=== PATIENT | female | born 1990 | race Caucasian/White ===

== ENCOUNTER → 2021-03-12 12:42 | Outpatient (CLI) | payer MEDICAID, SELFPAY ==
[2021-03-12 09:32] VITALS: BMI 32.8
[2021-03-12 14:00] LABS: Amphetamine Urine VISTA NEGATIVE (<1000 ng/mL); Barbiturate Urine VISTA NEGATIVE (< 200 ng/mL); Benzodiazepine Urine VISTA NEGATIVE (< 200 ng/mL); Cocaine Urine VISTA NEGATIVE (< 300 ng/mL); Ecstacy Urine VISTA NEGATIVE (< 500 ng/mL); Methadone Urine VISTA NEGATIVE (< 300 ng/mL); PCP Urine VISTA NEGATIVE (< 25 ng/mL); THC Urine VISTA POSITIVE (< 50 ng/mL); Vista UDS pH Range 7
[2021-03-14 03:07] LABS: Chlamydia By Nucleic Acid AMP Negative (Negative)
[2021-03-14 08:16] LABS: Gonococcus By Nucleic Acid AMP Negative (Negative)
[2021-03-17 12:40] LABS: HPV APTIMA, High Risk Negative (Negative)
== END ==
PROVIDERS: Referring Provider Obstetrics & Gynecology; Visit Provider Obstetrics & Gynecology
DX: Z34.90 Encounter for supervision of normal pregnancy, unspecified, unspecified trimester (principal); Z12.4 Encounter for screening for malignant neoplasm of cervix; Z11.3 Encounter for screening for infections with a predominantly sexual mode of transmission
CPT/HCPCS: 80307; 87086; 87088; 87491; 87591; 87624; 88175; G0145

== ENCOUNTER → 2021-04-01 16:01 | Outpatient (CLI) | payer MEDICAID, SELFPAY ==
[2021-03-12 09:32] VITALS: BMI 32.8
[2021-04-01 17:07] LABS: NATERA MAILED SPECIMEN
[2021-04-01 17:12] LABS: Absolute Lymphocyte Count 2.13 X10^3/uL (0.83-4.51); Absolute Neutrophil Count 7.3 X10^3/uL (2.0-7.7); Basophil# 0.03 X10^3/uL; Basophil% 0.3 % (0-1); Eosinophil# 0.18 X10^3/uL; Eosinophils% 1.7 % (0-5); Hematocrit 38.3 % (37-47); Hemoglobin 13.1 g/dL (12.0-15.0); Lymphocyte # 2.13 X10^3/ul (0.83-4.51); Lymphocyte % 20.3 % (19-41); Mean Corp Hgb Conc 34.2 g/dL (32-36); Mean Corpuscular Hgb 31.3 pg (27.0-32.0); Mean Corpuscular Volume 91.6 fL (81-99); Mean Platelet Vol. 11.8 fl (6.2-12.0); Monocyte# 0.81 X10^3/uL; Monocyte% 7.7 % (0-10); NRBC Flagged by Analyzer 0 % (0-5); Neutrophil % 69.5 % (47-70); Platelet Count 248 K/mm3 (150-450); RBC Distribution Width CV 12.3 % (11.6-14.6); Red Blood Count 4.18 M/mm3 (4.2-5.4); White Blood Count 10.5 K/mm3 (4.4-11.0)
[2021-04-01 17:43] LABS: Glucose Challenge Gest 1H 50g 150 mg/dL (70-140)
[2021-04-02 10:33] LABS: HIV - WCH Non-Reactive (Nonreactive); Hepatitis B Surface Antigen Non-Reactive (Nonreactive); Rubella IgG Reactive (Nonreactive); Syphilis Antibodies Non-reactive
[2021-04-02 10:38] LABS: Hepatitis C Antibody Preliminary Reactive (Nonreactive)
== END ==
PROVIDERS: Obstetrics & Gynecology; Referring Provider Obstetrics & Gynecology; Visit Provider Obstetrics & Gynecology
DX: Z34.81 Encounter for supervision of other normal pregnancy, first trimester (principal); Z31.430 Encounter of female for testing for genetic disease carrier status for procreative management
CPT/HCPCS: 36415; 82950; 85025; 86703; 86762; 86780; 86803; 86850; 86900; 86901; 87340

== ENCOUNTER → 2021-04-10 16:34 | Outpatient (CLI) | payer MEDICAID, SELFPAY ==
[2021-04-10 15:56] VITALS: BMI 32.8
[2021-04-10 18:12] LABS: ALB/GLOB Ratio 0.8 RATIO (0.9-2.4); AST(SGOT) 27 U/L (15-37); Alanine Aminotransfer ALT/SGPT 42 U/L (13-56); Albumin, Serum 3.4 g/dL (3.2-5.0); Alkaline Phosphatase 73 U/L (45-117); Anion Gap 9 (5-15); BUN 8 mg/dL (7-18); BUN/Creat Ratio 12.7 RATIO (10-20); Chloride 105 mmol/L (98-107); Creatinine, Serum 0.63 mg/dL (0.55-1.02); EST Glomerular Filtration Rate 117 mL/min (>60); Est Glom Filt Rate - Afr Amer 142 mL/min (>60); Glucose 75 mg/dL (74-106); Potassium 3.3 mmol/L (3.5-5.1); Protein, Total 7.4 g/dL (6.4-8.2); Sodium Level 137 mmol/L (136-145)
== END ==
PROVIDERS: Referring Provider Obstetrics & Gynecology; Visit Provider Obstetrics & Gynecology
DX: O09.299 Supervision of pregnancy with other poor reproductive or obstetric history, unspecified trimester (principal); Z3A.00 Weeks of gestation of pregnancy not specified
CPT/HCPCS: 36415; 80053

== ENCOUNTER → 2021-06-06 08:19 | Outpatient (CLI) | payer MEDICAID, SELFPAY ==
--- NOTE | 2021-06-06 08:20 | US_ITS ---
STUDY: SECOND AND THIRD TRIMESTER OBSTETRICAL ULTRASOUND REASON FOR EXAM: Female, 31 years old anatomy scan LMP: 01/11/2021 TECHNIQUE: Transabdominal TECHNICAL QUALITY: Adequate. PRIOR ULTRASOUND: None. FINDINGS: There is a single intrauterine fetus. The fetus is in a cephalic presentation. There is demonstrated cardiac activity with a heart rate of 141 bpm. There is a normal amniotic fluid volume. The largest amniotic fluid pocket measures 5.2 cm. The amniotic fluid index (ELIS) is cm. The placenta is posterior in location and is not low lying. There are Grade 0 placental changes. The cervix measures 5 cm in length. The adnexal regions are not visualized. BIOMETRY: BPD: 5.0 cm: 21 weeks, 1 days HC: 18.6 cm: 20 weeks, 6 days AC: 16.8 cm: 21 weeks, 5 days FL: 3.4 cm: 20 weeks, 3 days CI: 77.26% FL/BPD: 67.10% FL/HC: 18.11% FL/AC: 20.09% HC/AC: 1.11 age by current US: 20 weeks, 6 days. [place] by current US: . Estimated weight: 412 grams, +/- 62 grams, 67% %. Age by LMP: 20 weeks, 6 days. [place] by LMP: . ANATOMY: Gender: Cranium: Normal lateral ventricles. Normal choroid plexus. Normal cerebellum. Normal cisterna magna. Normal face, nose and lips. Chest: Normal 4-chamber heart. Abdomen/Pelvis: Normal diaphragm. Normal stomach. Normal abdominal wall. Normal cord insertion. Normal 3 vessel cord. Normal kidneys. Normal bladder. Spine: Normal cervical spine. Normal thoracic spine. Normal lumbar spine. Normal sacrum. Extremities: Normal bilateral upper extremities. Normal bilateral lower extremities. US/OB Anatomy Scan IMPRESSION: Living intrauterine of 20 weeks 6 days as described above. Electronically Signed: Hieu Hou MD at 9:19 EDT Tel , Service support ,
== END ==
PROVIDERS: Referring Provider Obstetrics & Gynecology; Visit Provider Obstetrics & Gynecology
DX: Z34.90 Encounter for supervision of normal pregnancy, unspecified, unspecified trimester (principal)
CPT/HCPCS: 76805; 76817

== ENCOUNTER → 2021-07-31 08:51 | Outpatient (CLI) | payer MEDICAID, SELFPAY ==
[2021-07-31 10:02] LABS: Absolute Lymphocyte Count 1.69 X10^3/uL (0.83-4.51); Absolute Neutrophil Count 9.7 X10^3/uL (2.0-7.7); Basophil# 0.04 X10^3/uL; Basophil% 0.3 % (0-1); Eosinophil# 0.16 X10^3/uL; Eosinophils% 1.3 % (0-5); Hematocrit 36.2 % (37-47); Hemoglobin 12.7 g/dL (12.0-15.0); Lymphocyte # 1.69 X10^3/ul (0.83-4.51); Lymphocyte % 13.5 % (19-41); Mean Corp Hgb Conc 35.1 g/dL (32-36); Mean Corpuscular Hgb 31.8 pg (27.0-32.0); Mean Corpuscular Volume 90.7 fL (81-99); Mean Platelet Vol. 12.1 fl (6.2-12.0); Monocyte# 0.89 X10^3/uL; Monocyte% 7.1 % (0-10); NRBC Flagged by Analyzer 0 % (0-5); Neutrophil # 9.69 X10^3/uL (2.7-7.7); Neutrophil % 77.2 % (47-70); Platelet Count 200 K/mm3 (150-450); RBC Distribution Width CV 12.6 % (11.6-14.6); RBC Distribution Width SD 41.5 fl (35.1-43.9); Red Blood Count 3.99 M/mm3 (4.2-5.4); White Blood Count 12.6 K/mm3 (4.4-11.0)
[2021-07-31 10:29] LABS: Glucose Challenge Gest 1H 50g 242 mg/dL (70-140)
[2021-08-01 21:07] LABS: HCV Quant. RNA PCR See Final Results IU/mL (.); HCV RNA-PCR, QUANT 13300000 IU/mL (.)
[2021-08-01 21:47] LABS: HCV log 10 7.124 (.)
== END ==
PROVIDERS: Obstetrics & Gynecology; Referring Provider Nurse Practitioner Women's Health; Visit Provider Nurse Practitioner Women's Health
DX: Z13.1 Encounter for screening for diabetes mellitus (principal); R76.8 Other specified abnormal immunological findings in serum
CPT/HCPCS: 36415; 82950; 85025; 87522

== ENCOUNTER 2021-08-14 17:00 | Outpatient (RCR) | payer MEDICAID, SELFPAY | END 2021-08-29 23:59 | LOC: DC 17:00 | PROVIDERS: Visit Provider Nurse Practitioner Women's Health | DX: O24.419 Gestational diabetes mellitus in pregnancy, unspecified control (principal); Z3A.00 Weeks of gestation of pregnancy not specified | CPT/HCPCS: 97802 ==

== ENCOUNTER 2021-09-04 16:22 | Outpatient (CLI) | payer MEDICAID, SELFPAY ==
--- NOTE | 2021-09-04 16:28 | US_ITS ---
STUDY: SECOND AND THIRD TRIMESTER OBSTETRICAL ULTRASOUND - LIMITED REASON FOR EXAM: Female, 31 years old. growth PRIOR ULTRASOUND: 10.8.21 TECHNIQUE: Transabdominal TECHNICAL QUALITY: Adequate. FINDINGS: There is a single intrauterine fetus. The fetus is in a cephalic presentation. There is demonstrated cardiac activity with a heart rate of 140 bpm. There is a normal amniotic fluid volume. The largest amniotic fluid pocket measures 5.3 cm. The amniotic fluid index (ELIS) is 14.2 cm. The placenta is posterior in location and is not low lying. There are Grade 1 placental changes. The cervix measures cm in length: 4.2. BIOMETRY: BPD: 84 mm: 33 weeks, 5 days HC: 317 mm: 35 weeks, 4 days AC: 301 mm: 34 weeks, 0 days FL: 64 mm: 32 weeks, 5 days CI: 78 FL/AC: 21 FL/BPD: 75 HC/AC: 1.05 age by current US: 34 weeks, 0 days. [place] by current US: 2.17.22. Estimated weight: 2279 grams, +/- 342 grams, 45 %. Age by LMP: 33 weeks, 5 days. [place] by LMP: 2.19.22. ANATOMY: Not obtained US/OB Limited With Biometrics IMPRESSION: There is a single live intrauterine with a heart rate of 140 bpm. age by current US: 34 weeks, 0 days. [place] by current US: 2.17.22. Estimated weight: 2279 grams, +/- 342 grams, 45 %. Electronically Signed: Freddy Chanel MD at 19:11 EST , Service support ,
== END 2021-09-04 23:59 | disposition short-term general hospital (02) ==
LOC: US 16:25
PROVIDERS: Referring Provider Obstetrics & Gynecology; Visit Provider Obstetrics & Gynecology
DX: O24.410 Gestational diabetes mellitus in pregnancy, diet controlled (principal); Z3A.34 34 weeks gestation of pregnancy
CPT/HCPCS: 76816

== ENCOUNTER 2021-09-18 08:43 | Outpatient (CLI) | payer MEDICAID, SELFPAY ==
[2021-09-18 08:54] LABS: Absolute Lymphocyte Count 0.69 X10^3/uL (0.83-4.51); Basophil# 0.02 X10^3/uL; Basophil% 0.3 % (0-1); Eosinophil# 0.02 X10^3/uL; Eosinophils% 0.3 % (0-5); Hematocrit 39.9 % (37-47); Hemoglobin 13.2 g/dL (12.0-15.0); Lymphocyte # 0.69 X10^3/ul (0.83-4.51); Lymphocyte % 10.3 % (19-41); Mean Corp Hgb Conc 33.1 g/dL (32-36); Mean Corpuscular Hgb 30.3 pg (27.0-32.0); Mean Corpuscular Volume 91.5 fL (81-99); Mean Platelet Vol. 12.2 fl (6.2-12.0); Monocyte# 0.94 X10^3/uL; NRBC Flagged by Analyzer 0 % (0-5); Neutrophil # 5.04 X10^3/uL (2.7-7.7); Neutrophil % 74.8 % (47-70); Platelet Count 156 K/mm3 (150-450); RBC Distribution Width CV 13.1 % (11.6-14.6); RBC Distribution Width SD 43.6 fl (35.1-43.9); Red Blood Count 4.36 M/mm3 (4.2-5.4); White Blood Count 6.7 K/mm3 (4.4-11.0)
[2021-09-18 09:09] LABS: ALB/GLOB Ratio 0.7 RATIO (0.9-2.4); AST(SGOT) 108 U/L (15-37); Alanine Aminotransfer ALT/SGPT 80 U/L (13-56); Albumin, Serum 2.6 g/dL (3.2-5.0); Alkaline Phosphatase 102 U/L (45-117); Anion Gap 9 (5-15); BUN 7 mg/dL (7-18); BUN/Creat Ratio 9.7 RATIO (10-20); Calcium,Total 8.6 mg/dL (8.5-10.1); Chloride 108 mmol/L (98-107); Creatinine, Serum 0.72 mg/dL (0.55-1.02); EST Glomerular Filtration Rate 100 mL/min (>60); Est Glom Filt Rate - Afr Amer 121 mL/min (>60); Globulin 3.9 g/dL (2.2-4.2); Glucose 139 mg/dL (74-106); Potassium 3.5 mmol/L (3.5-5.1); Protein, Total 6.5 g/dL (6.4-8.2); Sodium Level 137 mmol/L (136-145)
[2021-09-18 09:13] LABS: Protein, Urine (Random) 54.9 mg/dL (<11.9); Protein:Creat Ratio 446 mg/g CRE (0-200)
[2021-09-18 15:59] VITALS: BP 123/72; PULSE 115; TEMP 36.8; O2SAT 100
[2021-09-18 16:00] VITALS: BMI 30.6
[2021-09-18] MEDS: Betamethasone/Betamethasone 30 MG/5 ML Vial 12 MG IM (16:44)
--- NOTE | 2021-09-19 15:45 | OB.TRI.HP_ITS ---
HPI - General HPI Narrative YUMIKO PEÑA, is a 31 F who presents to labor and delivery for PIH work up and r/o labor. PFSH PFSH Medical History (Updated 10/15/21 @ 08:05 by Kristy Lewis NP, [employer]) Abnormal glucose affecting Gestational diabetes Hepatitis History of blood transfusion Home Medications vit,[id number] [Prenatabs FA] 1 tab PO DAILY 05/18/15 [History Last Taken 09/19/21 08:00 1 tab] clindamycin 1 %-benzoyl peroxide 5 % topical gel 1 applic TOPICAL DAILY 84 Days #50 g 07/04/21 [Rx Last Taken 09/18/21 22:00] blood sugar diagnostic #100 ea 07/31/21 [Rx Last Taken Unknown] blood-glucose meter #1 ea 07/31/21 [Rx Last Taken Unknown] aspirin 81 mg tablet,delayed release 81 mg PO DAILY 08/04/21 [History Last Taken 09/19/21 08:00 1 tab] lancets 33 gauge #100 ea 08/04/21 [History Last Taken Unknown] metformin 1,000 mg PO BID 10/10/21 [History Last Taken Unknown] Allergy/AdvReac Type Severity Reaction Status Date / Time latex Allergy Itching Verified 10/10/21 19:38 Family History Grandfather Heart disease Surgical History History of appendectomy Social History Smoking Status: Former smoker alcohol intake: never what type of physical activity do you participate in: none seatbelt use: always do you feel safe at home: Yes additional social history: Tavo Cole History 4 Elective abortions Hx Para 2 Spontaneous abortions 1 Hx # Term Pregnancies Ectopic pregnancies Hx # Pregnancies Multiple births # of living children 3 Past Pregnancies Del. Date Name GA/Weeks Outcome Route Bth Weight Gen Labor Lgth Anesthesia Del Locatn Provider FOB Unknown 2008 Paramjit 38 live - full term 7lbs 1oz Male epidural [place] Unknown 2013 SAB Unknown 2015 Mehrdad 36 live - 5lbs 11oz Male none [facility] 10/14/21 Errol 39 live - full term Male [facility] Jurgen Delivery Date: induction Janice Louie Delivery Date: No notes to display Delivery Date: induction pre e Janice Louie Delivery Date: 10/14/21 IOL 39 wk GDMA2 6/8 BPP hep c Bonita Moura Constitutional Constitutional: Reports systems reviewed and no addt'l complaints, except as documented Gastrointestinal Gastrointestinal: Denies bloating, constipation, cramping, diarrhea, nausea or vomiting Genitourinary Genitourinary: Reports other Details: Denies vaginal odor, vaginal bleeding, or vaginal discharge ; Denies difficulty urinating or flank pain Physical Exam HEENT normocephalic Resp normal respiratory effort and normal air movement no CVA tenderness Extremity normal to inspection General Extremity: edema bilateral (trace ) NST FHR Rate Baby A Baseline: 140 Variability:: Moderate Accelerations:: 15 x 15 Decelerations:: None NST Reactive:: Yes FHR Category:: Category I Assessment & Plan (1) Gestational diabetes: QUALIFIERS: Gestational diabetes mellitus control: diet-controlled Trimester: third trimester Qualified Code(s): O24.410 - Gestational diabetes mellitus in , diet controlled COMMENT: medication controlled, growth us q 4 weeks, 1/6 US nl, 2x weekly NSTs, deliver at 39 (2) Hepatitis C antibody test positive: COMMENT: antibody positive; 07/31 high viral load 13 million. s/p consult ID plan treatment PLAN: Patient presents for triage evaluation secondary to some elevated blood pressures and GDM. FHT: Moderate variability reactive no decelerations category I tracing [place]: intermittent Contractions Assessment and plan: Reactive NST, reassuring maternal and status patient discharged to home to follow-up. See problem list details for additional plan information. Charges/Coding Multi Select Codes Visit Charges Office Visit/Consults: 43094 OV L3 Est Urinary/Genital Urinary/Genital CPT Codes: 51002-25 non-stress test Interp
== END 2021-09-18 23:59 | disposition home or self-care (01) ==
LOC: PAVLAB 09:36 → WPOUT 15:56 → WP 15:56
PROVIDERS: Referring Provider Obstetrics & Gynecology; Visit Provider Obstetrics & Gynecology
DX: O13.3 Gestational [pregnancy-induced] hypertension without significant proteinuria, third trimester (principal); O24.410 Gestational diabetes mellitus in pregnancy, diet controlled; O98.413 Viral hepatitis complicating pregnancy, third trimester; B19.20 Unspecified viral hepatitis C without hepatic coma; Z3A.00 Weeks of gestation of pregnancy not specified; Z79.82 Long term (current) use of aspirin; Z79.899 Other long term (current) drug therapy; Z87.891 Personal history of nicotine dependence
CPT/HCPCS: 36415; 80053; 82570; 84156; 85025; 96372; 99218; G0378; J0702

== ENCOUNTER 2021-09-19 15:50 | Outpatient (CLI) | payer MEDICAID, SELFPAY ==
[2021-09-19 16:04] VITALS: BMI 30.4
[2021-09-19 16:41] VITALS: BP 121/72; PULSE 80; TEMP 36.7
[2021-09-19] MEDS: Betamethasone/Betamethasone 30 MG/5 ML Vial 12 MG IM (16:42)
--- NOTE | 2021-09-19 17:57 | OB.TRI.PN ---
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 repeat end of august. consult ID (4) Hx of preeclampsia, prior , currently : COMMENT: Second . Recommend ASA. Baseline PreE labs (5) : QUALIFIERS: Weeks of gestation: 35 weeks Qualified Code(s): Z3A.35 - 35 weeks gestation of COMMENT: NIPT- low risk male. Anatomy US normal (6) Supervision of high risk , antepartum: COMMENT: PRR [place] 10/18/20 boy PC:Mehrdad Yusuf Spouse:Mehrdad (7) Pre-eclampsia: PLAN: celestone x2 now deliver 37 weeks unless severe symptoms occur, then deliver oren when severe symptoms develop
== END 2021-09-19 23:59 | disposition home or self-care (01) ==
LOC: WPOUT 15:51 → WP 15:52
PROVIDERS: Referring Provider Obstetrics & Gynecology; Visit Provider Obstetrics & Gynecology
DX: O14.93 Unspecified pre-eclampsia, third trimester (principal); O24.410 Gestational diabetes mellitus in pregnancy, diet controlled; Z14.8 Genetic carrier of other disease; Z3A.35 35 weeks gestation of pregnancy; O09.93 Supervision of high risk pregnancy, unspecified, third trimester
CPT/HCPCS: 96372; 99218; G0378; J0702

== ENCOUNTER 2021-09-25 09:12 | Outpatient (CLI) | payer MEDICAID, SELFPAY ==
[2021-09-25 09:44] LABS: Absolute Lymphocyte Count 1.37 X10^3/uL (0.83-4.51); Absolute Neutrophil Count 3.7 X10^3/uL (2.0-7.7); Basophil# 0.01 X10^3/uL; Basophil% 0.2 % (0-1); Eosinophil# 0.07 X10^3/uL; Eosinophils% 1.2 % (0-5); Hematocrit 39.5 % (37-47); Hemoglobin 13.6 g/dL (12.0-15.0); Lymphocyte # 1.37 X10^3/ul (0.83-4.51); Lymphocyte % 23.8 % (19-41); Mean Corp Hgb Conc 34.4 g/dL (32-36); Mean Corpuscular Hgb 31.1 pg (27.0-32.0); Mean Corpuscular Volume 90.4 fL (81-99); Mean Platelet Vol. 11.8 fl (6.2-12.0); Monocyte# 0.64 X10^3/uL; Monocyte% 11.1 % (0-10); NRBC Flagged by Analyzer 0 % (0-5); Neutrophil # 3.65 X10^3/uL (2.7-7.7); Neutrophil % 63.5 % (47-70); Platelet Count 165 K/mm3 (150-450); RBC Distribution Width CV 13.1 % (11.6-14.6); Red Blood Count 4.37 M/mm3 (4.2-5.4); White Blood Count 5.8 K/mm3 (4.4-11.0)
[2021-09-25 10:19] LABS: ALB/GLOB Ratio 0.6 RATIO (0.9-2.4); AST(SGOT) 19 U/L (15-37); Alanine Aminotransfer ALT/SGPT 26 U/L (13-56); Albumin, Serum 2.5 g/dL (3.2-5.0); Alkaline Phosphatase 106 U/L (45-117); Anion Gap 7 (5-15); BUN 8 mg/dL (7-18); BUN/Creat Ratio 11.9 RATIO (10-20); Calcium,Total 8.8 mg/dL (8.5-10.1); Chloride 109 mmol/L (98-107); Creatinine, Serum 0.67 mg/dL (0.55-1.02); EST Glomerular Filtration Rate 108 mL/min (>60); Est Glom Filt Rate - Afr Amer 131 mL/min (>60); Globulin 3.9 g/dL (2.2-4.2); Glucose 86 mg/dL (74-106); Potassium 3.9 mmol/L (3.5-5.1); Protein, Total 6.4 g/dL (6.4-8.2); Sodium Level 139 mmol/L (136-145)
[2021-09-25 10:58] LABS: Protein, Urine (Random) 10.1 mg/dL (<11.9); Protein:Creat Ratio 357 mg/g CRE (0-200)
== END 2021-09-25 23:59 | disposition short-term general hospital (02) ==
LOC: PAVLAB 09:13
PROVIDERS: Referring Provider Obstetrics & Gynecology; Visit Provider Obstetrics & Gynecology
DX: O14.93 Unspecified pre-eclampsia, third trimester (principal); Z3A.36 36 weeks gestation of pregnancy
CPT/HCPCS: 36415; 80053; 82570; 84156; 85025; 87081

== ENCOUNTER 2021-09-29 14:23 | Outpatient (CLI) | payer MEDICAID, SELFPAY ==
--- NOTE | 2021-09-29 14:27 | US_ITS ---
STUDY: SECOND AND THIRD TRIMESTER OBSTETRICAL ULTRASOUND REASON FOR EXAM: Female, 31 years old growth LMP: 01/11/2021 TECHNIQUE: Transabdominal TECHNICAL QUALITY: Adequate. PRIOR ULTRASOUND: Comparison is made with prior study dated 09/04/2021. FINDINGS: There is a single intrauterine fetus. The fetus is in a cephalic presentation. There is demonstrated cardiac activity with a heart rate of 158 bpm. There is a normal amniotic fluid volume. The largest amniotic fluid pocket measures 3.6 cm. The amniotic fluid index (ELIS) is 17.5 cm. The placenta is fundal and posterior in location. There are Grade 2 placental changes. The adnexal regions are not visualized. BIOMETRY: BPD: 9 cm: 36 weeks, 1 days HC: 32.1 cm: 36 weeks, 1 days AC: 33.5 cm: 37 weeks, 2 days FL: 7 cm: 36 weeks, 0 days CI: 80% FL/BPD: 78% FL/HC: FL/AC: 21% HC/AC: 0.96 age by current US: 36 weeks, 3 days. [place] by current US: 10/24/2021. Estimated weight: 3089 grams, +/- 463 grams, 50 %. age by prior US: 37 weeks, 4 days. [place] by prior US: 10/16/2019. Age by LMP: 37 weeks, 2 days. [place] by LMP: 10/18/2021. US/OB Limited With Biometrics IMPRESSION: Single live uterine gestation with mean gestational age of 37 weeks and 4 days. The measurements obtained today fall within normal expected range. Electronically Signed: Guero Vasquez MD at 15:38 EST ,
== END 2021-09-29 23:59 | disposition short-term general hospital (02) ==
PROVIDERS: Referring Provider Obstetrics & Gynecology; Visit Provider Obstetrics & Gynecology
DX: O24.410 Gestational diabetes mellitus in pregnancy, diet controlled (principal)
CPT/HCPCS: 76816

== ENCOUNTER 2021-10-01 13:42 | Outpatient (CLI) | payer MEDICAID, SELFPAY ==
[2021-10-01 14:29] LABS: Protein, Urine (Random) < 6.0 mg/dL (<11.9)
[2021-10-01 14:30] LABS: Absolute Lymphocyte Count 1.16 X10^3/uL (0.83-4.51); Absolute Neutrophil Count 6.4 X10^3/uL (2.0-7.7); Basophil# 0.01 X10^3/uL; Basophil% 0.1 % (0-1); Eosinophil# 0.04 X10^3/uL; Eosinophils% 0.5 % (0-5); Hematocrit 41.2 % (37-47); Hemoglobin 13.8 g/dL (12.0-15.0); Lymphocyte # 1.16 X10^3/ul (0.83-4.51); Lymphocyte % 13.8 % (19-41); Mean Corp Hgb Conc 33.5 g/dL (32-36); Mean Corpuscular Hgb 30.2 pg (27.0-32.0); Mean Corpuscular Volume 90.2 fL (81-99); Mean Platelet Vol. 12.8 fl (6.2-12.0); Monocyte% 9.5 % (0-10); NRBC Flagged by Analyzer 0 % (0-5); Neutrophil # 6.35 X10^3/uL (2.7-7.7); Neutrophil % 75.9 % (47-70); Platelet Count 172 K/mm3 (150-450); RBC Distribution Width CV 12.9 % (11.6-14.6); RBC Distribution Width SD 42.2 fl (35.1-43.9); Red Blood Count 4.57 M/mm3 (4.2-5.4); White Blood Count 8.4 K/mm3 (4.4-11.0)
[2021-10-01 14:31] LABS: ALB/GLOB Ratio 0.7 RATIO (0.9-2.4); AST(SGOT) 22 U/L (15-37); Alanine Aminotransfer ALT/SGPT 39 U/L (13-56); Albumin, Serum 2.7 g/dL (3.2-5.0); Alkaline Phosphatase 106 U/L (45-117); Anion Gap 9 (5-15); BUN 10 mg/dL (7-18); BUN/Creat Ratio 14.6 RATIO (10-20); Calcium,Total 9.6 mg/dL (8.5-10.1); Chloride 107 mmol/L (98-107); Creatinine, Serum 0.69 mg/dL (0.55-1.02); EST Glomerular Filtration Rate 106 mL/min (>60); Est Glom Filt Rate - Afr Amer 128 mL/min (>60); Globulin 4.1 g/dL (2.2-4.2); Glucose 107 mg/dL (74-106); Potassium 3.8 mmol/L (3.5-5.1); Protein, Total 6.8 g/dL (6.4-8.2); Sodium Level 139 mmol/L (136-145)
== END 2021-10-01 23:59 | disposition short-term general hospital (02) ==
PROVIDERS: Referring Provider Nurse Practitioner Women's Health; Visit Provider Nurse Practitioner Women's Health
DX: Z34.90 Encounter for supervision of normal pregnancy, unspecified, unspecified trimester (principal)
CPT/HCPCS: 87635; 36415; 80053; 82570; 84156; 85025; U0003; U0005

== ENCOUNTER 2021-10-05 15:50 | Outpatient (CLI) | payer MEDICAID, SELFPAY ==
[2021-10-05 16:02] VITALS: BP 137/78; PULSE 95
--- NOTE | 2021-10-06 15:42 | OB.TRI.NOTE ---
HPI - General HPI Narrative YUMIKO PEÑA, is a 31 F who presents to OB triage for scheduled NST 10/06/2021 [facility] Medical History (Updated 10/15/21 @ 08:05 by Kristy Lewis NP, [employer]) Abnormal glucose affecting Gestational diabetes Hepatitis History of blood transfusion Home Medications vit,[id number] [Prenatabs FA] 1 tab PO DAILY 05/18/15 [History Last Taken 09/19/21 08:00 1 tab] clindamycin 1 %-benzoyl peroxide 5 % topical gel 1 applic TOPICAL DAILY 84 Days #50 g 07/04/21 [Rx Last Taken 09/18/21 22:00] blood sugar diagnostic #100 ea 07/31/21 [Rx Last Taken Unknown] blood-glucose meter #1 ea 07/31/21 [Rx Last Taken Unknown] aspirin 81 mg tablet,delayed release 81 mg PO DAILY 08/04/21 [History Last Taken 09/19/21 08:00 1 tab] lancets 33 gauge #100 ea 08/04/21 [History Last Taken Unknown] metformin 1,000 mg PO BID 10/10/21 [History Last Taken Unknown] Allergy/AdvReac Type Severity Reaction Status Date / Time latex Allergy Itching Verified 10/10/21 19:38 Family History Grandfather Heart disease Surgical History History of appendectomy Social History Smoking Status: Former smoker alcohol intake: never what type of physical activity do you participate in: none seatbelt use: always do you feel safe at home: Yes additional social history: Tavo Cole History 4 Elective abortions Hx Para 2 Spontaneous abortions 1 Hx # Term Pregnancies Ectopic pregnancies Hx # Pregnancies Multiple births # of living children 3 Past Pregnancies Del. Date Name GA/Weeks Outcome Route Bth Weight Gen Labor Lgth Anesthesia Del Locatn Provider FOB Unknown 2008 Paramjit 38 live - full term 7lbs 1oz Male epidural [place] Unknown 2013 SAB Unknown 2015 Mehrdad 36 live - 5lbs 11oz Male none [facility] 10/14/21 Errol 39 live - full term Male [facility] Jurgen Delivery Date: induction Janice Louie Delivery Date: No notes to display Delivery Date: induction pre e Janice Louie Delivery Date: 10/14/21 IOL 39 wk GDMA2 6/8 BPP hep c MartellBonita ROS Constitutional Constitutional: Reports systems reviewed and no addt'l complaints, except as documented Gastrointestinal Gastrointestinal: Denies bloating, constipation, cramping, diarrhea, nausea or vomiting Genitourinary Genitourinary: Reports other Details: Denies vaginal odor, vaginal bleeding, or vaginal discharge ; Denies difficulty urinating or flank pain Physical Exam HEENT normocephalic Resp normal respiratory effort and normal air movement no CVA tenderness Extremity normal to inspection General Extremity: edema bilateral (trace ) NST FHR Rate Baby A Baseline: 140 Variability:: Moderate Accelerations:: 15 x 15 Decelerations:: None NST Reactive:: Yes FHR Category:: Category I Assessment & Plan (1) Gestational diabetes: QUALIFIERS: Gestational diabetes mellitus control: diet-controlled Trimester: third trimester Qualified Code(s): O24.410 - Gestational diabetes mellitus in , diet controlled COMMENT: medication controlled, growth us q 4 weeks, 1/6 US nl, 2x weekly NSTs, deliver at 39 (2) Hepatitis C antibody test positive: COMMENT: antibody positive; 07/31 high viral load 13 million. s/p consult ID plan treatment PLAN: Patient presents for triage evaluation secondary to gestational diabetes and some elevated blood pressures on and off throughout the pregnancies. She was scheduled for an NST FHT: Moderate variability reactive no decelerations category I tracing [place]: irregular Contractions Assessment and plan: Reactive NST, reassuring maternal and status patient discharged to home to follow-up. See problem list details for additional plan information. Charges/Coding Multi Select Codes Visit Charges Office Visit/Consults: 45972 OV L3 Est Urinary/Genital Urinary/Genital CPT Codes: 91483-27 non-stress test Interp
== END 2021-10-05 23:59 | disposition home or self-care (01) ==
LOC: WPOUT 15:57 → WP 15:58
PROVIDERS: Referring Provider Obstetrics & Gynecology; Visit Provider Obstetrics & Gynecology
DX: O24.410 Gestational diabetes mellitus in pregnancy, diet controlled (principal); Z01.84 Encounter for antibody response examination; Z87.891 Personal history of nicotine dependence; O26.20 Pregnancy care for patient with recurrent pregnancy loss, unspecified trimester; Z3A.00 Weeks of gestation of pregnancy not specified
CPT/HCPCS: 59050; 99218; G0378

== ENCOUNTER 2021-10-07 16:54 | Outpatient (CLI) | payer MEDICAID, SELFPAY ==
--- NOTE | 2021-10-07 16:57 | US_ITS ---
and: OBSTETRICAL ULTRASOUND - BIOPHYSICAL PROFILE REASON FOR EXAM: Female, 31 years old decrease movement -- wet read to [phone] LMP: PRIOR ULTRASOUND: None. TECHNIQUE: Transabdominal TECHNICAL QUALITY: Adequate. FINDINGS: There is a single intrauterine fetus. The fetus is in a cephalic presentation. There is demonstrated cardiac activity with a heart rate of 139 bpm. There is a normal amniotic fluid volume. The largest amniotic fluid pocket measures 4.48 cm. The amniotic fluid index (ELIS) is 15.1 cm. The placenta is posterior and fundal There are Grade 2 placental changes. Age by LMP: 38 weeks, 3 days. [place] by LMP: 10/18/2021. BIOPHYSICAL PROFILE: Breathing Movements (FBM): 2 Gross Body Movements (GBM): 2 Tone (FT): 2 Amniotic Fluid Volume (AFV): 2 TOTAL SCORE: 2 / 8 US/Biophysical Prof W/O Non Stres IMPRESSION: Normal biophysical profile of 8/8. Incidental finding of apparent male fetus with small bilateral hydroceles Recommend clinical correlation and follow-up studies if clinically warranted Electronically Signed: Abhishek Desir MD at 21:37 EST ,
== END 2021-10-07 23:59 | disposition home or self-care (01) ==
LOC: US 16:55
PROVIDERS: Referring Provider Obstetrics & Gynecology; Visit Provider Obstetrics & Gynecology
DX: O36.8190 Decreased fetal movements, unspecified trimester, not applicable or unspecified (principal); Z3A.38 38 weeks gestation of pregnancy
CPT/HCPCS: 76819

== ENCOUNTER 2021-10-09 09:08 | Outpatient (CLI) | payer MEDICAID, SELFPAY ==
[2021-10-09 09:26] LABS: Absolute Lymphocyte Count 1.14 X10^3/uL (0.83-4.51); Absolute Neutrophil Count 5.8 X10^3/uL (2.0-7.7); Basophil# 0.02 X10^3/uL; Basophil% 0.3 % (0-1); Eosinophil# 0.05 X10^3/uL; Eosinophils% 0.6 % (0-5); Hematocrit 41.1 % (37-47); Lymphocyte # 1.14 X10^3/ul (0.83-4.51); Lymphocyte % 14.6 % (19-41); Mean Corp Hgb Conc 34.1 g/dL (32-36); Mean Corpuscular Hgb 31.4 pg (27.0-32.0); Mean Corpuscular Volume 92.2 fL (81-99); Mean Platelet Vol. 12.3 fl (6.2-12.0); Monocyte# 0.77 X10^3/uL; Monocyte% 9.8 % (0-10); NRBC Flagged by Analyzer 0 % (0-5); Neutrophil # 5.83 X10^3/uL (2.7-7.7); Neutrophil % 74.4 % (47-70); Platelet Count 188 K/mm3 (150-450); RBC Distribution Width CV 12.9 % (11.6-14.6); RBC Distribution Width SD 43.3 fl (35.1-43.9); Red Blood Count 4.46 M/mm3 (4.2-5.4); White Blood Count 7.8 K/mm3 (4.4-11.0)
[2021-10-09 09:34] LABS: Protein, Urine (Random) 8.6 mg/dL (<11.9); Protein:Creat Ratio 290 mg/g CRE (0-200)
[2021-10-09 09:54] LABS: ALB/GLOB Ratio 0.6 RATIO (0.9-2.4); AST(SGOT) 19 U/L (15-37); Alanine Aminotransfer ALT/SGPT 27 U/L (13-56); Albumin, Serum 2.5 g/dL (3.2-5.0); Alkaline Phosphatase 110 U/L (45-117); Anion Gap 9 (5-15); BUN 8 mg/dL (7-18); BUN/Creat Ratio 10.8 RATIO (10-20); Calcium,Total 9.1 mg/dL (8.5-10.1); Chloride 107 mmol/L (98-107); Creatinine, Serum 0.74 mg/dL (0.55-1.02); EST Glomerular Filtration Rate 97 mL/min (>60); Est Glom Filt Rate - Afr Amer 117 mL/min (>60); Glucose 95 mg/dL (74-106); Potassium 3.6 mmol/L (3.5-5.1); Protein, Total 6.5 g/dL (6.4-8.2); Sodium Level 136 mmol/L (136-145)
== END 2021-10-09 23:59 | disposition home or self-care (01) ==
LOC: PAVLAB 09:09
PROVIDERS: Referring Provider Obstetrics & Gynecology; Visit Provider Obstetrics & Gynecology
DX: O12.10 Gestational proteinuria, unspecified trimester (principal); Z3A.00 Weeks of gestation of pregnancy not specified
CPT/HCPCS: 80053; 85025; 36415; 82570; 84156

== ENCOUNTER 2021-10-10 18:20 | Inpatient (IN) | payer MEDICAID, SELFPAY ==
[2021-10-10] VITALS (11 sets, daily range): BP systolic 123–140; BP diastolic 70–89; PULSE 78–109; TEMP 36.4–37; O2SAT 91–99; BMI 29.7; BMI 29.9
--- NOTE | 2021-10-10 16:16 | US_ITS ---
STUDY: OBSTETRICAL ULTRASOUND - BIOPHYSICAL PROFILE REASON FOR EXAM: Female, 31 years old. Decreased movement. LMP: 01/11/2021 PRIOR ULTRASOUND: 10/07/2021, 09/29/2021, 09/04/2021, 06/06/2021. TECHNIQUE: Transabdominal TECHNICAL QUALITY: Adequate. FINDINGS: There is a single intrauterine fetus. The fetus is in a cephalic presentation. There is demonstrated cardiac activity with a heart rate of 125 bpm. There is a normal amniotic fluid volume. The largest amniotic fluid pocket measures 10.1 cm. The amniotic fluid index (ELIS) is 19.5 to cm. The placenta is fundal and posterior not low-lying There are Grade 2 placental changes. Age by LMP: 38 weeks, 6 days. [place] by LMP: 10/18/2021. age by prior US: 38 weeks, 6 days. [place] by prior US: 10/18/2021.. BIOPHYSICAL PROFILE: Breathing Movements (FBM): 0 Gross Body Movements (GBM): 2 Tone (FT): 2 Amniotic Fluid Volume (AFV): 2 TOTAL SCORE: 6 / 8 US/Biophysical Prof W/O Non Stres IMPRESSION: biophysical profile of 8. Electronically Signed: Eugenio Choudhary DO at 17:35 EST ,
[2021-10-10] MEDS: Lactated Ringers 1,000 ML 50 ML IV (19:45)
[2021-10-10 20:06] LABS: Bedside Glucose 106 mg/dL (70-110)
[2021-10-10 20:18] LABS: Absolute Lymphocyte Count 1.67 X10^3/uL (0.83-4.51); Absolute Neutrophil Count 8.7 X10^3/uL (2.0-7.7); Basophil# 0.02 X10^3/uL; Basophil% 0.2 % (0-1); Eosinophil# 0.02 X10^3/uL; Eosinophils% 0.2 % (0-5); Hematocrit 41.8 % (37-47); Lymphocyte # 1.67 X10^3/ul (0.83-4.51); Lymphocyte % 14.9 % (19-41); Mean Corp Hgb Conc 33.5 g/dL (32-36); Mean Corpuscular Hgb 31.1 pg (27.0-32.0); Mean Corpuscular Volume 92.9 fL (81-99); Mean Platelet Vol. 12.5 fl (6.2-12.0); Monocyte# 0.73 X10^3/uL; Monocyte% 6.5 % (0-10); NRBC Flagged by Analyzer 0 % (0-5); Neutrophil # 8.69 X10^3/uL (2.7-7.7); Neutrophil % 77.8 % (47-70); Platelet Count 207 K/mm3 (150-450); RBC Distribution Width CV 12.8 % (11.6-14.6); RBC Distribution Width SD 43.8 fl (35.1-43.9); White Blood Count 11.2 K/mm3 (4.4-11.0)
[2021-10-10] MEDS: Oxytocin 30 units/NS 500 ml 30 UNITS/500 ML IV.SOLN IV (20:22)
--- NOTE | 2021-10-10 20:25 | HP.PCM.OB_ITS ---
HPI - General General Date of Admission: 10/10/21 HPI Narrative YUMIKO PEÑA, is a 31 F who presents for decreased movement and 6 out of 8 BPP. Patient has had a complicated by medication controlled diabetes and hepatitis C. She has also had proteinuria intermittently at the end of this and had Covid 2 weeks ago. Contractions are irregular and she is now 3 cm dilated. Maternal Data Information [place] Calculator Estimated Delivery Date Method Current WG Current Estimate 10/18/21 LMP (Certain) 38w 6d Other Estimates 10/16/21 Ultrasound #1 39w 1d PFSH [facility] Medical History (Updated 10/10/21 @ 20:[address] Rosenda Seaman MD) Abnormal glucose affecting Gestational diabetes Hepatitis History of blood transfusion Home Medications vit,[id number] [Prenatabs FA] 1 tab PO DAILY 05/18/15 [History Last Taken 09/19/21 08:00 1 tab] clindamycin 1 %-benzoyl peroxide 5 % topical gel 1 applic TOPICAL DAILY 84 Days #50 g 07/04/21 [Rx Last Taken 09/18/21 22:00] blood sugar diagnostic #100 ea 07/31/21 [Rx Last Taken Unknown] blood-glucose meter #1 ea 07/31/21 [Rx Last Taken Unknown] aspirin 81 mg tablet,delayed release 81 mg PO DAILY 08/04/21 [History Last Taken 09/19/21 08:00 1 tab] lancets 33 gauge #100 ea 08/04/21 [History Last Taken Unknown] metformin 1,000 mg PO BID 10/10/21 [History Last Taken Unknown] Allergy/AdvReac Type Severity Reaction Status Date / Time latex Allergy Itching Verified 10/10/21 19:38 Family History Grandfather Heart disease Surgical History History of appendectomy Social History Smoking Status: Former smoker alcohol intake: never what type of physical activity do you participate in: none seatbelt use: always do you feel safe at home: Yes additional social history: Tavo Cole History 4 Elective abortions Hx Para 2 Spontaneous abortions 1 Hx # Term Pregnancies Ectopic pregnancies Hx # Pregnancies Multiple births # of living children 2 Past Pregnancies Del. Date Name GA/Weeks Outcome Route Bth Weight Infant Gen Labor Lgth Anesthesia Del Locatn Provider FOB Unknown 2008 Paramjit 38 live - full term 7lbs 1oz Male epidural Lonnie Unknown 2013 SAB Unknown 2015 Mehrdad 36 live - 5lbs 11oz Male none [facility] Delivery Date: induction Louie,Janice Delivery Date: No notes to display Delivery Date: induction pre e Louie,Janice Visit Details Expected Delivery Route/Plan Labor Preferences- labor support person: [] labor intervention preferences: [] pain management options preferred: [] cut cord/dad catch: [] : [] PP control planned: iud planned discussed possible routes of delivery and associated risks: [] special requests: [] Plans covid vaccine: non immune, counseled regarding risk of covid in vs vaccination and declined vaccination flu vaccine: decline tdap vaccine: [] rhogam: [] LARC form signed: [] Problem list reviewed and updated with the most current plan of care details and appropriate orders placed. Relevant counseling for the gestational age provided. Continue routine care and follow up unless otherwise noted in visit notes/problem list details OB Flowsheet Initial Weight: 171 lb Date -?-?-?-?-?-?-?-?-?-?-?-?- EGA Weight BP Urine Prot -?-?-?-?-?-?-?-?-?-?-?-?- Glucose FHR FuHt Pres Dilation -?-?-?-?-?-?-?-?-?-?-?-?- Effaced St Visit Note 03/12/21 -?-?-?-?-?-?-?-?-?-?-?-?- 8w 4d 171 lb (+0 oz) 130/92 -?-?-?-?-?-?-?-?-?-?-?-?- 170 -?-?-?-?-?-?-?-?-?-?-?-?- GP - CRL 22mm co nsistent with LMP and prior US 04/10/21 -?-?-?-?-?-?-?-?-?-?-?-?- 12w 5d 176 lb (+5 lb) 156/92 Negative -?-?-?-?-?-?-?-?-?-?-?-?- Negative 160 -?-?-?-?-?-?-?-?-?-?-?-?- GP - no crampin g or bleeding. Discussed hep C+ - viral load and CMP today. Discussed fragile X premutation 05/09/21 -?-?-?-?-?-?-?-?-?-?-?-?- 16w 6d 185 lb (+14 lb) 118/60 -?-?-?-?-?-?-?-?-?-?-?-?- 140 -?-?-?-?-?-?-?-?-?-?-?-?- SM- no vb some c ramping 06/06/21 -?-?-?-?-?-?-?-?-?-?-?-?- 20w 6d 185 lb 8 oz (+14 lb 8 oz) 136/86 Negative -?-?-?-?-?-?-?-?-?-?-?-?- Negative 145 -?-?-?-?-?-?-?-?-?-?-?-?- GP - no ctx, LOF , VB, DFM. Anatomy done today. 07/04/21 -?-?-?-?-?-?-?-?-?-?-?-?- 24w 6d 195 lb (+24 lb) 116/60 -?-?-?-?-?-?-?-?-?-?-?-?- 130 -?-?-?-?-?-?-?-?-?-?-?-?- JV- no lof, vagi nal bleeding, or dec fm. benzaclyn ordered for cystic acne. 07/31/21 -?-?-?-?-?-?-?-?-?-?-?-?- 28w 5d 194 lb (+23 lb) 130/84 Negative -?-?-?-?-?-?-?-?-?-?-?-?- Negative 147 28 -?-?-?-?-?-?-?-?-?-?-?-?- -No VB, LOF. G ood FM. 28 wk labs, larc, flu, tdap. -No VB, LOF. Good FM. 28 w k labs, larc, flu, tdap. HCV viral load today. 08/14/21 -?-?-?-?-?-?-?-?-?-?-?-?- 30w 5d 195 lb 4 oz (+24 lb 4 oz) 112/84 -?-?-?-?-?-?-?-?-?-?-?-?- 142 31 -?-?-?-?-?-?-?-?-?-?-?-?- JV- no lof, vagi nal bleeding, or dec fm. pt has moderate hip pain that was better when worked from home. 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 network project manager recommended for remainder of . exercises discussed 08/28/21 -?-?-?-?-?-?-?-?-?-?-?-?- 32w 5d 193 lb (+22 lb) 126/84 Negative -?-?-?-?-?-?-?-?--?-?-?-?- Negative 140 -?-?-?-?-?-?-?-?-?-?-?-?- SM- discussed me dication managed diabetes now recommend 2x weekly nsts SM- no vb lof good fm no reg ular ctx BS controlled with medication, discussed medication managed diabetes now recommend 2x weekly nsts 09/02/21 -?-?-?-?-?-?-?-?-?-?-?-?- 33w 3d 194 lb (+23 lb) 122/88 Negative -?-?-?-?-?-?-?-?-?-?-?-?- Negative 140 -?-?-?-?-?-?-?-?-?-?-?-?- -NST only reac tive 09/04/21 -?-?-?-?-?-?-?-?-?-?-?--?- 33w 5d 196 lb (+25 lb) 127/78 Negative -?-?-?-?-?-?-?-?-?-?-?-?- Negative 135 33 0 -?-?-?-?-?-?-?-?-?-?-?-?- 50 -3 JV- nst re active. ptl precautions discussed. pt is feeling pressure and some sharp shooting vaginal pains. 09/09/21 -?-?-?-?-?-?-?-?-?-?-?-?- 34w 3d 191 lb (+20 lb) 120/80 -?-?-?-?-?-?-?-?-?-?-?-?- 130 -?-?-?-?-?-?-?-?-?-?-?-?- MH-NST only reac tive 09/11/21 -?-?-?-?-?-?-?-?-?-?-?--?- 34w 5d 191 lb (+20 lb) 130/80 Negative -?-?-?-?-?-?-?-?-?-?-?-?- Negative 130 35 -?-?-?-?-?-?-?-?-?-?-?-?- SM- no vb lof go od fm n rgular ctx BS controlled 09/16/21 -?-?-?-?-?-?-?-?-?-?-?-?- 35w 3d 189 lb (+18 lb) 100/76 Negative -?-?-?-?-?-?-?-?--?-?-?-?- Negative -?-?-?-?-?-?-?-?-?-?-?-?- NST only today. (reactive) 09/18/21 -?-?-?-?-?-?-?-?-?-?-?-?- 35w 5d 190 lb (+19 lb) 120/86 -?-?-?-?-?-?-?-?-?-?-?-?- 130 -?-?-?-?-?-?-?-?-?-?-?-?- JV- no lof, vagi nal bleeding, dec fm, headaches, visual changes, or RUQ pain. She had a headache yesterday and felt off. Sending for labs 09/23/21 -?-?-?-?-?-?-?-?-?-?-?-?- 36w 3d 188 lb (+17 lb) 122/84 -?-?-?-?-?-?-?-?-?-?-?-?- 130 -?-?-?-?-?-?-?-?-?-?-?-?- MH-NST only reac tive 09/25/21 -?-?-?-?-?-?-?-?-?-?-?-?- 36w 5d 187 lb (+16 lb) 110/82 -?-?-?-?-?-?-?-?-?-?-?-?- 130 -?-?-?-?-?-?-?-?-?-?-?-?- SM- repeat precl ampsia labs- all normal bps and no RODRÍGUEZ BV no vb lof good fm no regular ctx, if normal labs continue exp management 10/01/21 -?-?-?-?-?-?-?-?-?-?-?-?- 37w 4d 190 lb (+19 lb) 152/90 143/84 145/84 -?-?-?-?-?-?-?-?-?-?-?-?- -?-?-?-?-?-?-?-?-?-?-?-?- JV- nst reactive . pt states that she has had on an off headaches. sending to lab for [facility] labs. she will then return for results. 10/07/21 -?-?-?-?-?-?-?-?-?-?-?-?- 38w 3d 186 lb (+15 lb) 122/83 Negative -?-?-?-?-?-?-?-?-?-?-?-?- Negative 120 Cephalic 2 -?-?-?-?-?-?-?-?-?-?-?-?- 40 -2 MH NST onl y and nonreactive. BPP per SM. 10/09/21 -?-?-?-?-?-?-?-?-?-?-?-?- 38w 5d 188 lb 2 oz (+17 lb 2 oz) 137/81 Negative -?-?-?-?-?-?-?-?-?-?-?-?- Negative 120 -?-?-?-?-?-?-?-?-?-?-?-?- MH-reactive NST. No reg CTX. Good FM. NO VB,LOF. IOL 10/1310/10/21 -?-?-?-?-?-?-?-?-?-?-?-?- 38w 6d 184 lb (+13 lb) 185 lb 9.6 oz (+14 lb 9.6 oz) 140/82 -?-?-?-?-?-?-?-?-?-?-?-?- -?-?-?-?-?-?-?-?-?-?-?-?- NST FHR Rate Baby A Baseline: 130 Variability:: Moderate Accelerations:: 15 x 15 Decelerations:: None NST Reactive:: Yes FHR Category:: Category I Uterine Activity:: irregular ROS Constitutional Constitutional: Reports systems reviewed and no addt'l complaints, except as documented Eyes Eyes: Denies change in vision ENT HEENT: Reports systems reviewed and no addt'l complaints, except as documented; Denies headache(s) Cardiovascular Cardiovascular: Reports systems reviewed and no addt'l complaints, except as documented; Denies chest pain or dyspnea Respiratory/Chest Respiratory/Chest: Reports systems reviewed and no addt'l complaints, except as documented Gastrointestinal Gastrointestinal: Reports systems reviewed and no addt'l complaints, except as documented; Denies abdominal pain Genitourinary Genitourinary: Reports systems reviewed and no addt'l complaints, except as documented, contractions Details: present (irregular) and movement Details: present; Denies dysuria or genital lesions Musculoskeletal Musculoskeletal: Reports systems reviewed and no addt'l complaints, except as documented Neurologic Neurologic: Reports systems reviewed and no addt'l complaints, except as documented Endocrine Endocrinology: Reports systems reviewed and no addt'l complaints, except as documented Vital Signs Vital Signs Vital Signs: 10/10/21 19:24 10/10/21 19:26 Temperature 98.6 F Temperature Source Temporal Pulse Rate 109 H 97 Blood Pressure 140/82 H BP Systolic 140 BP Diastolic 82 Pulse Ox 97 Weight Weight: 184 lb Body Mass Index (BMI) 29.7 Physical Exam Const alert, oriented x3, no apparent distress and healthy appearing HEENT normocephalic and moist oral mucous membranes Head and Scalp: atraumatic Neck full ROM, no lymphadenopathy, supple and thyroid normal General: trachea midline Lymph Lymphatic: no lymphadenopathy noted Chest inspection of chest normal Resp normal respiratory effort Cardio regular rate GI normal to inspection, nondistended, normoactive bowel sounds, soft to palpation and non-tender Inspection: gravid external exam normal Manual OB Exam: estimated gestational size appropriate, presentation cephalic, dilated, effaced and station Extremity normal to inspection General Extremity: Negative for edema Skin no rashes or lesions noted Neuro no focal motor deficits and deep tendon reflexes 2+ bilaterally Motor Exam: strength 5/5 throughout and clonus absent Psych mental status grossly normal Labs Labs Labs: Blood Type A POSITIVE Antibody Screen NEGATIVE Hct 41.8 % (37-47) Hgb 14.0 g/dL (12.0-15.0) Pap Smear Positive Obstetrics US Syphilis Total Ab Non-reactive Rubella IgG Antibody Reactive (Nonreactive) Hep Bs Antigen Non-Reactive (Nonreactive) Neisseria gonorrhoeae DNA ([place]ASA) Negative (Negative) HIV 1&2 Antibody Non-Reactive (Nonreactive) Glucose 1 Hr 50 gm 242 mg/dL (70-140) H Rhogam given: No Miscellaneous Test Assessment & Plan (1) Supervision of high risk , antepartum: COMMENT: PRR [place] 10/18/20 boy PC:Mehrdad Yusuf Spouse:Mehrdad (2) : QUALIFIERS: Weeks of gestation: 38 weeks Qualified Code(s): Z3A.38 - 38 weeks gestation of COMMENT: NIPT- low risk male. Anatomy US normal. GBS neg (3) Hx of preeclampsia, prior , currently : COMMENT: Second . Recommend ASA. Baseline PreE labs (4) Hepatitis C antibody test positive: COMMENT: antibody positive; 07/31 high viral load 13 million. repeat end of august. 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 continue weekly preeclampsia labs, delivery at 39 or earlier if develops HTN or neuro symptoms. rpt labs on 10/01/21 showed complete resolution of proteinuria and normalized LFT's bp 120's/80's (7) COVID-19 affecting in third trimester: COMMENT: advised of 81mg asa (8) Gestational diabetes: QUALIFIERS: Gestational diabetes mellitus control: diet-controlled Trimester: third trimester Qualified Code(s): O24.410 - Gestational diabetes mellitus in , diet controlled COMMENT: medication controlled, growth us q 4 weeks, / US nl, 2x weekly NSTs, deliver at 39 (9) Encounter for induction of labor: COMMENT: Plan Pitocin induction of labor, epidural as needed. Internals only if absolutely necessary, delay rupture of membranes to reduce transmission of hepatitis. Blood sugars every 4 hours and latent phase and every hour active phase (10) Decreased movements in third trimester: COMMENT: 6 out of 8 BPP recommend proceeding with induction of labor
[2021-10-10 21:21] LABS: Bedside Glucose 115 mg/dL (70-110)
[2021-10-10] MEDS: Lactated Ringers 500 ML 999 ML IV (23:04)
[2021-10-11] VITALS (40 sets, daily range): BP systolic 106–156; BP diastolic 55–85; PULSE 72–111; RESP 16–18; TEMP 36.3–37.4; O2SAT 95–99
[2021-10-11] MEDS: fentaNYL-bupivacaine (epidural) 100 ML BAG EPIDURAL ×3 (00:18→09:24)
[2021-10-11 01:31] LABS: Bedside Glucose 76 mg/dL (70-110)
[2021-10-11] MEDS: Lactated Ringers 1,000 ML 200 ML IV ×2 (03:42→08:34)
[2021-10-11 05:31] LABS: Bedside Glucose 71 mg/dL (70-110)
--- NOTE | 2021-10-11 08:52 | PCM.PN.BLA ---
Progress Note 5 cm arom blood tinged fluid 60 percent -2. pitocin overnight s/p epidural cat I tracing
[2021-10-11 09:26] LABS: Bedside Glucose 100 mg/dL (70-110)
[2021-10-11] MEDS: Lactated Ringers 500 ML 999 ML IV (10:07)
[2021-10-11 10:41] LABS: Bedside Glucose 72 mg/dL (70-110)
[2021-10-11] MEDS: Oxytocin 30 units/NS 500 ml 30 UNITS/500 ML IV.SOLN 334 UNITS IV (11:13)
--- NOTE | 2021-10-11 11:27 | EX.PCM.OBRPT ---
Assessment & Plan (1) Decreased movements in third trimester: COMMENT: 6 out of 8 BPP recommend proceeding with induction of labor (2) Encounter for induction of labor: COMMENT: Plan Pitocin induction of labor, epidural as needed. Internals only if absolutely necessary, delay rupture of membranes to reduce transmission of hepatitis. Blood sugars every 4 hours and latent phase and every hour active phase (3) Supervision of high risk , antepartum: COMMENT: PRR [place] 10/18/20 boy PC:Mehrdad Yusuf Spouse:Mehrdad (4) : QUALIFIERS: Weeks of gestation: 38 weeks Qualified Code(s): Z3A.38 - 38 weeks gestation of COMMENT: NIPT- low risk male. Anatomy US normal. GBS neg (5) Hx of preeclampsia, prior , currently : COMMENT: Second . Recommend ASA. Baseline PreE labs (6) Hepatitis C antibody test positive: COMMENT: antibody positive; 07/31 high viral load 13 million. 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 continue weekly preeclampsia labs, delivery at 39 or earlier if develops HTN or neuro symptoms. rpt labs on 10/01/21 showed complete resolution of proteinuria and normalized LFT's bp 120's/80's (9) COVID-19 affecting in third trimester: COMMENT: advised of 81mg asa (10) Gestational diabetes: QUALIFIERS: Gestational diabetes mellitus control: diet-controlled Trimester: third trimester Qualified Code(s): O24.410 - Gestational diabetes mellitus in , diet controlled COMMENT: medication controlled, growth us q 4 weeks, 09/04 US nl, 2x weekly NSTs, deliver at 39 (11) Vaginal delivery: COMMENT: IOL 02/04 BPP SM boy GDMA2 HepC Maternal Data Information [place] Calculator Estimated Delivery Date Method Current WG Current Estimate 10/18/21 LMP (Certain) 39w 0d Other Estimates 10/16/21 Ultrasound #1 39w 2d Vaginal Delivery Operative Information Pre-Operative Diagnosis: IAL Post-Operative Diagnosis: same Surgery / Procedure Performed: Spontaneous Vaginal Delivery Type of Anesthesia: Epidural Special Medications: none Estimated Blood Loss: 100 Fluids Replaced: crystalloid Findings Description of Procedure: Patient began pushing and delivered the head in the ROSETTA presentation. The head was delivered atraumatically . The anterior and posterior shoulders delivered without complication followed by the rest of the infant and the was placed on the maternal abdomen. Delayed cord clamping was employed for approximately 60 seconds. Cord was clamped and cut and gentle traction was applied to the cord and the placenta delivered spontaneously immediately following it was noted to be intact with three-vessel cord. The perineum and vagina were inspected and noted to have no laceration. EBL was 100 cc. Patient and infant tolerated delivery well. Presentation: ROSETTA Amniotic Membrane Rupture Type: Artificial Amniotic Fluid Description: Clear Placental Delivery Description: Spontaneous Placenta Disposition: [facility] Cord Vessel Description: 3 Vessels Cord Entanglement: None Delayed Cord Clamping: Yes Post Vaginal Delivery Medications Given After Delivery: IV Pitocin Episiotomy Description: None Laceration: None Complication Complications: None Procedures Urinary/Genital [id number]: [id number] Vaginal Delivery+PP Care([facility])
--- NOTE | 2021-10-11 11:34 | PCM.DC ---
Discharge Instructions Diet Discharge Diet: No restrictions Activity Discharge Activity: Return to Normal Activity, May Not Drive (while taking narcotic pain medications.) and May Shower May resume sexual activity in: 4-6 weeks Dressing / Incision Call your doctor if your incision/area has: Continuous Slow Oozing, Sudden Increased Bleeding, Increased Pain/ Swelling, Increased Redness and Foul Smelling Discharge Follow Up Care Please Follow Up With: Rosenda Seaman MD When: Call [phone] to make an appointment with your doctor in 6 weeks. If you had elevated blood pressure or 4th degree laceration, you will need to be seen in 2 weeks. Test Results: Test results from this visit will be discussed in further detail at your follow-up appointment, if applicable. Discharge Plan Admission Admit Date/Time: 10/10/21 18:20 Primary Reason for Your Visit: vaginal delivery Attending Provider: Rosenda Seaman Primary Care Provider: Maeve PhysicianAkilah Primary Discharge Orders/Prescriptions Prescriptions: No Action clindamycin-benzoyl peroxide [Benzaclin] 1-5 % gel 1 applic topical DAILY 84 Days Qty: 50 RF: 2 (DME) lancets 33 gauge misc See Rx Instructions ea .ROUTE .MEDSUPPLY Qty: 100 RF: 0 aspirin [Adult Low Dose Aspirin] 81 mg tablet,delayed release (DR/EC) 81 mg PO DAILY RF: 0 Prenatabs FA 1 TABLET tablet 1 tab PO DAILY RF: 0 metformin 500 mg tablet 1,000 mg PO BID RF: 0 (DME) blood-glucose meter [T[employer]etrack Blood Glucose System] Kit See Rx Instructions .ROUTE .MEDSUPPLY Qty: 1 RF: 0 (DME) [employer]etrack Test Strip See Rx Instructions .ROUTE .MEDSUPPLY Qty: 100 RF: 4 Referrals / Follow Up: Care Physician,No Primary [Primary Care Provider] - Disposition Disposition (needs filled in before D/C Order can be placed): Home, Self Care
[2021-10-11 12:46] LABS: Bedside Glucose 72 mg/dL (70-110)
[2021-10-11] MEDS: Naproxen 500 MG Tablet PO (23:01)
[2021-10-12 05:09] VITALS: BP 135/79; PULSE 67; RESP 18; TEMP 36.2
[2021-10-12] MEDS: Acetaminophen 500 MG Tablet 1000 MG PO (05:25)
[2021-10-12 05:36] LABS: Bedside Glucose 67 mg/dL (70-110)
[2021-10-12 05:50] LABS: Bedside Glucose 81 mg/dL (70-110)
--- NOTE | 2021-10-12 07:11 | PCM.PN.OB ---
Subjective Subjective Patient doing well without complaints. Tolerating PO. Ambulating and voiding without difficulty. feeding well. Denies chest pain, shortness of breath, calf pain/swelling, fevers, chills, lightheadedness. Objective Data Objective Data Vital Signs: Vital Signs Temp Pulse Resp BP Pulse Ox 97.2 F L 67 18 135/79 H 97 10/12/21 05:09 10/12/21 05:09 10/12/21 05:09 10/12/21 05:09 10/11/21 11:22 Oxygen Delivery Method Room Air Weight: 185 lb 9.6 oz Body Mass Index (BMI) 29.9 Intake & Output: Intake and Output for Last 24 Hours 10/10/21 10/11/21 10/12/21 23:59 23:59 23:59 Intake Total 670.39 / 670.39 4342.10 / 4342.10 Output Total 1400 / 1400 Balance 670.39 / 670.39 2942.10 / 2942.10 Lab / Micro Data Result Diagrams: 10/10/21 19:35 Labs: Laboratory Results - last 24 hr 10/11/21 09:20: POC Glucose 100 10/11/21 10:26: POC Glucose 72 10/11/21 12:36: POC Glucose 72 10/12/21 05:27: POC Glucose 67 L 10/12/21 05:45: POC Glucose 81 ROS Constitutional Constitutional: Reports systems reviewed and no addt'l complaints, except as documented Cardiovascular Cardiovascular: Reports systems reviewed and no addt'l complaints, except as documented Respiratory/Chest Respiratory/Chest: Reports systems reviewed and no addt'l complaints, except as documented Gastrointestinal Gastrointestinal: Reports systems reviewed and no addt'l complaints, except as documented Physical Exam Const alert, oriented x3 and no apparent distress HEENT Head and Scalp: atraumatic Resp normal respiratory effort GI soft to palpation and non-tender Bimanual Exam - Vag & Uterus: uterus non-tender Uterus Palpation: uterus fundus firm (below Umbilicus) Assessment & Plan (1) Vaginal delivery: COMMENT: IOL 02/04 BPP SM boy GDMA2 HepC PLAN: s/p PPD # 1 1. routine post delivery care 2. bottle feeding- support given 3. rh positive 4. rubella immune
[2021-10-12 09:20] VITALS: BP 139/83; PULSE 81; RESP 16; TEMP 36.5; O2SAT 97
[2021-10-12] MEDS: Naproxen 500 MG Tablet PO (09:32)
== END 2021-10-12 12:10 | disposition home or self-care (01) | DRG 560 ==
LOC: WP 18:28
PROVIDERS: Admitting Provider Obstetrics & Gynecology; Referring Provider Obstetrics & Gynecology; Visit Provider Obstetrics & Gynecology
DX: O36.8130 Decreased fetal movements, third trimester, not applicable or unspecified (principal); Z37.0 Single live birth; O24.420 Gestational diabetes mellitus in childbirth, diet controlled; O98.42 Viral hepatitis complicating childbirth; B19.20 Unspecified viral hepatitis C without hepatic coma; Z3A.38 38 weeks gestation of pregnancy; Z87.891 Personal history of nicotine dependence; Z86.16 Personal history of COVID-19; Z14.8 Genetic carrier of other disease
CPT/HCPCS: 36415; 59025; 59050; 76819; 80053; 82570; 82962; 84156; 85025; 86850; 86900; 86901; 99218; J7120; G0378

== ENCOUNTER 2021-11-24 09:37 | Outpatient (CLI) | payer MEDICAID, SELFPAY ==
[2021-11-24 10:48] LABS: T4 Free Direct 1.02 ng/dL (0.76-1.46); Thyroid Stim Hormone (TSH) 1.58 uIU/mL (0.358-3.74)
[2021-11-25 20:08] LABS: HCV Quant. RNA PCR See Final Results IU/mL (.)
== END 2021-11-24 23:59 | disposition home or self-care (01) ==
LOC: PAVLAB 09:37
PROVIDERS: Nurse Practitioner Women's Health; Referring Provider Obstetrics & Gynecology; Visit Provider Obstetrics & Gynecology
DX: E01.0 Iodine-deficiency related diffuse (endemic) goiter (principal)
CPT/HCPCS: 36415; 84439; 84443; 87522

== ENCOUNTER 2021-11-27 15:29 | Outpatient (CLI) | payer MEDICAID, SELFPAY ==
--- NOTE | 2021-11-27 15:33 | US_ITS ---
EXAM: US SOFT TISSUES HEAD AND NECK, THYROID CLINICAL INDICATION: thyromegaly TECHNIQUE: Greyscale and color doppler imaging was performed of the thyroid gland. This report was created using [employer] report generation technology. COMPARISON: None. FINDINGS: LEFT THYROID LOBE: The left lobe of thyroid measures 5.3 x 1.8 x 1.6 cm and is homogeneous. Homogeneous echotexture with normal vascularity. No thyroid nodules are present. RIGHT THYROID LOBE: The right lobe of thyroid measures 5.2 x 2.0 x 1.3 cm and is homogeneous. Homogeneous echotexture with normal vascularity. No thyroid nodules are present. ISTHMUS: The isthmus measures 3 mm. No thyroid nodules are present. OTHER FINDINGS: No masses identified. US/Thyroid IMPRESSION: Mild diffuse enlargement of the thyroid. No focal abnormalities. Electronically Signed: Can Smith MD at 1:46 EDT ,
== END 2021-11-27 23:59 | disposition home or self-care (01) ==
LOC: US 15:31
PROVIDERS: Referring Provider Obstetrics & Gynecology; Visit Provider Obstetrics & Gynecology
DX: E01.0 Iodine-deficiency related diffuse (endemic) goiter (principal)
CPT/HCPCS: 76536

== ENCOUNTER → 2022-02-20 | Outpatient (CLI) | payer MEDICAID, SELFPAY ==
[2022-02-20 09:25] LABS: Erythrocyte Sedimentation Rate 7 mm/hr (0-30)
[2022-02-20 09:29] LABS: Absolute Lymphocyte Count 1.87 X10^3/uL (0.83-4.51); Absolute Neutrophil Count 3.6 X10^3/uL (2.0-7.7); Basophil# 0.04 X10^3/uL; Basophil% 0.6 % (0-1); Eosinophil# 0.12 X10^3/uL; Eosinophils% 1.9 % (0-5); Hematocrit 45.5 % (37-47); Hemoglobin 15.1 g/dL (12.0-15.0); Lymphocyte # 1.87 X10^3/ul (0.83-4.51); Lymphocyte % 29.5 % (19-41); Mean Corp Hgb Conc 33.2 g/dL (32-36); Mean Corpuscular Hgb 30.8 pg (27.0-32.0); Mean Corpuscular Volume 92.7 fL (81-99); Mean Platelet Vol. 11.3 fl (6.2-12.0); Monocyte# 0.67 X10^3/uL; Monocyte% 10.6 % (0-10); NRBC Flagged by Analyzer 0 % (0-5); Neutrophil # 3.62 X10^3/uL (2.7-7.7); Neutrophil % 57.2 % (47-70); Platelet Count 259 K/mm3 (150-450); RBC Distribution Width CV 12.3 % (11.6-14.6); Red Blood Count 4.91 M/mm3 (4.2-5.4); White Blood Count 6.3 K/mm3 (4.4-11.0)
[2022-02-20 09:31] LABS: Prothrombin Time (Protime)PT. 12.8 SECONDS (11.7-14.9)
[2022-02-20 09:51] LABS: AST(SGOT) 93 U/L (15-37); Alanine Aminotransfer ALT/SGPT 158 U/L (13-56); Albumin, Serum 3.6 g/dL (3.2-5.0); Alkaline Phosphatase 81 U/L (45-117); Anion Gap 5 (5-15); BUN 13 mg/dL (7-18); BUN/Creat Ratio 14.6 RATIO (10-20); CRP < 2.90 mg/L (0.0-3.0); Calcium,Total 8.6 mg/dL (8.5-10.1); Chloride 110 mmol/L (98-107); Creatinine, Serum 0.89 mg/dL (0.55-1.02); EST Glomerular Filtration Rate 78 mL/min (>60); Est Glom Filt Rate - Afr Amer 94 mL/min (>60); Ferritin 92 ng/mL (8-252); Globulin 3.5 g/dL (2.2-4.2); Glucose 99 mg/dL (74-106); LDH 235 U/L (84-246); Potassium 3.7 mmol/L (3.5-5.1); Protein, Total 7.1 g/dL (6.4-8.2); Sodium Level 140 mmol/L (136-145)
[2022-02-20 09:53] LABS: Hemoglobin A1c 5.1 % (3.8-5.6)
[2022-02-20 10:26] LABS: HIV - WCH Non-Reactive (Nonreactive)
[2022-02-20 10:33] LABS: Hepatitis C Antibody REACTIVE (Nonreactive)
[2022-02-23 13:07] LABS: Anti-Centromere B Ab <0.2 AI (0.0-0.9); Anti-Chromatin <0.2 AI (0.0-0.9); Anti-Jo <0.2 AI (0.0-0.9); Anti-Scleroderma-70 AB <0.2 AI (0.0-0.9); RNP Ab 0.5 AI (0.0-0.9); SJOGREN'S Anti-SS-A test < 0.2 AI (0.0-0.9); SJOGREN'S Anti-SS-B test < 0.2 AI (0.0-0.9); Smith Ab <0.2 AI (0.0-0.9)
[2022-02-23 15:39] LABS: Anti-Mitochondrial AB <20.0 Units (0.0-20.0); Anti-dsDNA Ab 3 IU/mL (0-9)
== END | disposition home or self-care (01) ==
LOC: LAB 08:50
PROVIDERS: Referring Provider Nurse Practitioner Adult Health; Visit Provider Nurse Practitioner Adult Health
DX: B19.20 Unspecified viral hepatitis C without hepatic coma (principal)
CPT/HCPCS: 36415; 80053; 80074; 82105; 82140; 82164; 82390; 82525; 82728; 83010; 83036; 83516; 83615; 85025; 85610; 85652; 86140; 86225; 86235; 86256; 86703; 86803; 87522; 87902

== ENCOUNTER → 2022-03-13 | Outpatient (CLI) | payer MEDICAID, SELFPAY ==
--- NOTE | 2022-03-13 09:32 | US_ITS ---
STUDY: ABDOMINAL ULTRASOUND - ELASTOGRAPHY REASON FOR VISIT: Female, 32 years old. Hepatitis C. TECHNIQUE: Liver stiffness measurements were obtained on a Troppin RS 85 ultrasound machine using a CA 1-7 probe following the SRU guidelines. 3 measurements were obtained using a 2-D-SWE method. The IQR/M was 13% suggesting a quality data set. TECHNICAL QUALITY: Adequate. COMPARISON: Comparison is made with prior study done earlier in day. FINDINGS: Liver: There is no demonstrated mass lesion. Median liver stiffness measured 5 kPa. US/Elastography Parenchyma/Organ IMPRESSION: Liver stiffness measures 5 kPa compatible with F0-F1 (Normal to mild liver fibrosis) Metavir score. Electronically Signed: Guero Vasquez MD at 10:42 EDT ,
--- NOTE | 2022-03-13 09:32 | US_ITS ---
STUDY: ABDOMINAL ULTRASOUND - RIGHT UPPER QUADRANT REASON FOR VISIT: Female, 32 years old hepatitis C, TECHNIQUE: Ultrasound evaluation of the right upper quadrant was performed with real-time and static dixon-scale imaging. TECHNICAL QUALITY: Adequate. COMPARISON: None. FINDINGS: Liver: The liver measures 15.2 cm. There is normal echogenicity of the liver. The bile ducts are within normal limits. There is hepatic color flow. The direction of portal flow is hepatopetal. There is no demonstrated mass lesion. Gallbladder: Normal distended gallbladder. The gallbladder wall measures 1.6 mm. There is a negative sonographic Velásquez''s sign. There is no pericholecystic fluid. There are no gallstones. Common Bile Duct (C.B.D.): The common bile duct measures 3.3 mm. Pancreas: Normal size of the head, body and tail of the pancreas. There is normal echogenicity of the pancreas. There is a 2.2 cm x 1.2 cm x 1.1 cm well-defined hypoechoic nodular density in the head of the pancreas. Correlation with the CT scan of the pancreas is recommended. Right Kidney: Normal size of the right kidney. The right kidney measures 12.5 cm x 5.3 cm x 4.4 cm. Normal renal cortex. The right cortex measures 1.6 cm. There is no demonstrated renal mass or cyst. There is no right hydronephrosis. US/Abdomen Limited IMPRESSION: 2.2 cm x 1.2 cm x 1.1 sono well-defined hypoechoic nodule in the head of the pancreas. This may represent a small lymph node. Correlation with the CT scan of the pancreas is recommended for further evaluation. Electronically Signed: Guero Vasquez MD at 10:40 EDT ,
== END | disposition home or self-care (01) ==
LOC: US 09:30
PROVIDERS: Referring Provider Nurse Practitioner Adult Health; Visit Provider Nurse Practitioner Adult Health
DX: B19.20 Unspecified viral hepatitis C without hepatic coma (principal)
CPT/HCPCS: 76705; 76981

== ENCOUNTER → 2022-08-04 | Outpatient (CLI) | payer MEDICAID, SELFPAY ==
[2022-08-04 10:15] LABS: Absolute Lymphocyte Count 2.12 X10^3/uL (0.83-4.51); Absolute Neutrophil Count 4.1 X10^3/uL (2.0-7.7); Basophil# 0.06 X10^3/uL; Basophil% 0.8 % (0-1); Eosinophil# 0.24 X10^3/uL; Eosinophils% 3.2 % (0-5); Hematocrit 46.4 % (37-47); Lymphocyte # 2.12 X10^3/ul (0.83-4.51); Lymphocyte % 28.5 % (19-41); Mean Corp Hgb Conc 34.5 g/dL (32-36); Mean Corpuscular Hgb 31.9 pg (27.0-32.0); Mean Corpuscular Volume 92.6 fL (81-99); Mean Platelet Vol. 11.5 fl (6.2-12.0); Monocyte# 0.87 X10^3/uL; Monocyte% 11.7 % (0-10); NRBC Flagged by Analyzer 0 % (0-5); Neutrophil # 4.13 X10^3/uL (2.7-7.7); Neutrophil % 55.7 % (47-70); Platelet Count 309 K/mm3 (150-450); RBC Distribution Width CV 12.1 % (11.6-14.6); RBC Distribution Width SD 41.4 fl (35.1-43.9); Red Blood Count 5.01 M/mm3 (4.2-5.4); White Blood Count 7.4 K/mm3 (4.4-11.0)
[2022-08-04 10:35] LABS: AST(SGOT) 16 U/L (15-37); Alanine Aminotransfer ALT/SGPT 17 U/L (13-56); Albumin, Serum 3.7 g/dL (3.2-5.0); Alkaline Phosphatase 97 U/L (45-117); Anion Gap 4 (5-15); BUN 8 mg/dL (7-18); BUN/Creat Ratio 8.6 RATIO (10-20); Calcium,Total 9.1 mg/dL (8.5-10.1); Chloride 107 mmol/L (98-107); Creatinine, Serum 0.92 mg/dL (0.55-1.02); EST Glomerular Filtration Rate 75 mL/min (>60); Est Glom Filt Rate - Afr Amer 90 mL/min (>60); Globulin 3.7 g/dL (2.2-4.2); Glucose 95 mg/dL (74-106); Potassium 3.7 mmol/L (3.5-5.1); Protein, Total 7.4 g/dL (6.4-8.2); Sodium Level 140 mmol/L (136-145)
[2022-08-05 18:07] LABS: HCV Quant. RNA PCR HCV Not Detected IU/mL (.)
== END | disposition home or self-care (01) ==
LOC: LAB 08:55
PROVIDERS: Referring Provider Nurse Practitioner Adult Health; Visit Provider Nurse Practitioner Adult Health
DX: B19.20 Unspecified viral hepatitis C without hepatic coma (principal)
CPT/HCPCS: 36415; 80053; 85025; 87522

== ENCOUNTER → 2023-01-28 | Outpatient (CLI) | payer MEDICAID, SELFPAY ==
[2023-01-28 09:28] LABS: Basophil# 0.05 X10^3/uL; Basophil% 0.9 % (0-1); Eosinophil# 0.14 X10^3/uL; Eosinophils% 2.4 % (0-5); Hematocrit 42.8 % (37-47); Hemoglobin 14.7 g/dL (12.0-15.0); Lymphocyte % 34.8 % (19-41); Mean Corp Hgb Conc 34.3 g/dL (32-36); Mean Corpuscular Hgb 31.5 pg (27.0-32.0); Mean Corpuscular Volume 91.6 fL (81-99); Mean Platelet Vol. 10.9 fl (6.2-12.0); Monocyte# 0.57 X10^3/uL; Monocyte% 9.9 % (0-10); NRBC Flagged by Analyzer 0 % (0-5); Neutrophil # 2.98 X10^3/uL (2.7-7.7); Platelet Count 260 K/mm3 (150-450); RBC Distribution Width CV 12.2 % (11.6-14.6); Red Blood Count 4.67 M/mm3 (4.2-5.4); White Blood Count 5.7 K/mm3 (4.4-11.0)
[2023-01-28 09:57] LABS: ALB/GLOB Ratio 1.1 RATIO (0.9-2.4); AST(SGOT) 18 U/L (15-37); Alanine Aminotransfer ALT/SGPT 16 U/L (13-56); Albumin, Serum 3.7 g/dL (3.2-5.0); Alkaline Phosphatase 65 U/L (45-117); Amylase 62 U/L (25-115); Anion Gap 5 (5-15); BUN 8 mg/dL (7-18); BUN/Creat Ratio 9.5 RATIO (10-20); Calcium,Total 8.5 mg/dL (8.5-10.1); Chloride 111 mmol/L (98-107); Creatinine, Serum 0.84 mg/dL (0.55-1.02); EST Glomerular Filtration Rate 83 mL/min (>60); Est Glom Filt Rate - Afr Amer 101 mL/min (>60); Globulin 3.4 g/dL (2.2-4.2); Glucose 91 mg/dL (74-106); Lipase 56 U/L (13-75); Potassium 4.1 mmol/L (3.5-5.1); Protein, Total 7.1 g/dL (6.4-8.2); Sodium Level 141 mmol/L (136-145)
== END | disposition home or self-care (01) ==
LOC: LAB 09:07
PROVIDERS: Referring Provider Nurse Practitioner Adult Health; Visit Provider Nurse Practitioner Adult Health
DX: R11.0 Nausea (principal); K86.89 Other specified diseases of pancreas
CPT/HCPCS: 36415; 80053; 82150; 83690; 85025

== ENCOUNTER → 2023-02-04 | Outpatient (CLI) | payer MEDICAID, SELFPAY ==
--- NOTE | 2023-02-04 17:55 | CT_ITS ---
STUDY: CT ABDOMEN AND PELVIS WITH AND WITHOUT CONTRAST REASON FOR EXAM: Female, 32 years old. Nodule near head of pancreas on US. RADIATION DOSAGE (If Supplied By Facility): CTDIvol = ( 11.68 ) mGy, DLP = ( 1091.49 ) mGycm TECHNIQUE: Transaxial images were obtained from the dome of the diaphragm to the symphysis pubis without oral contrast. 100 ML 370 ISOVUE was administered. Sagittal and coronal images were reconstructed. Individualized dose optimization techniques were used for this CT. COMPARISON: Comparison made with prior sonogram dated March 13, 2022. FINDINGS: The visualized lung bases are unremarkable. The visualized portions of the heart are within normal limits. Normal liver. Normal gallbladder and extrahepatic biliary system. Normal spleen. Normal pancreas. No pancreatic density is seen. Normal bilateral adrenal glands. Normal right kidney. Normal left kidney. Normal visualized stomach. Normal small intestine. Normal colon. The appendix is visualized and appears normal. Normal abdominal aorta. Normal inferior vena cava. Normal retroperitoneum. Normal urinary bladder. IUD is seen within the endometrium. Enlarged uterus. There is a small umbilical hernia containing fat. Normal osseous structures. CT/CT Abd/Pelvis W/WO Contrast IMPRESSION: Enlarged uterus. IUD is seen within the endometrium. Electronically Signed: Guero Vasquez MD at 10:40 EDT ,
== END | disposition home or self-care (01) ==
LOC: CT 17:52
PROVIDERS: Referring Provider Nurse Practitioner Adult Health; Visit Provider Nurse Practitioner Adult Health
DX: K86.89 Other specified diseases of pancreas (principal)
CPT/HCPCS: 74178; Q9967

== ENCOUNTER → 2023-02-12 | Outpatient (CLI) | payer MEDICAID, SELFPAY ==
--- NOTE | 2023-02-12 11:25 | US_ITS ---
INDICATION: enlarged uterus EXAMINATION: Ultrasound US Transvaginal Non-OB TECHNIQUE: Transvaginal (for optimal evaluation of the adnexa) pelvic ultrasound was performed. Grayscale, spectral waveform, and color flow Doppler evaluation of the adnexa. COMPARISON: CT abdomen and pelvis 02/04/2023. LMP: 01/28/2023. FINDINGS: UTERUS: 10.8 x 6.5 x 4.9 cm. Appears mildly enlarged. No focal abnormality or fibroid identified. ENDOMETRIUM: Not thickened. Nabothian cyst in the cervix. Intrauterine device appears well-positioned within the endometrial canal. OVARIES: Right ovary: 3.7 x 2.9 x 2.1 cm. Left ovary: 2.8 x 2.4 x 2.2 cm. The ovaries appear unremarkable. Vascular flow demonstrated. No findings to suggest ovarian torsion. FREE FLUID: None. US/Transvaginal Non- IMPRESSION: Mildly enlarged uterus without focal abnormality. IUD in place. Electronically Signed: Jamia Joseph MD at 23:36 EDT ,
== END | disposition home or self-care (01) ==
LOC: US 11:24
PROVIDERS: Referring Provider Nurse Practitioner Women's Health; Visit Provider Nurse Practitioner Women's Health
DX: N85.2 Hypertrophy of uterus (principal)
CPT/HCPCS: 76830

== ENCOUNTER 2023-06-29 05:26 | Day surgery (SDC) | payer MEDICAID, SELFPAY ==
[2023-06-24 10:49] LABS: Hematocrit 44.9 % (37-47); Hemoglobin 14.7 g/dL (12.0-15.0); Mean Corp Hgb Conc 32.7 g/dL (32-36); Mean Corpuscular Hgb 30.5 pg (27.0-32.0); Mean Corpuscular Volume 93.2 fL (81-99); Mean Platelet Vol. 11.2 fl (6.2-12.0); Platelet Count 287 K/mm3 (150-450); RBC Distribution Width SD 41.3 fl (35.1-43.9); Red Blood Count 4.82 M/mm3 (4.2-5.4); White Blood Count 5.4 K/mm3 (4.4-11.0)
[2023-06-24 11:01] LABS: Prothrombin Time (Protime)PT. 12.9 SECONDS (11.7-14.9)
[2023-06-24 11:02] LABS: Partial Thromboplast Time 28.8 Seconds (24.1-36.2)
[2023-06-24 11:25] LABS: Magnesium 2.3 mg/dL (1.6-2.6)
[2023-06-24 11:38] LABS: ALB/GLOB Ratio 1.1 RATIO (0.9-2.4); AST(SGOT) 16 U/L (15-37); Alanine Aminotransfer ALT/SGPT 14 U/L (13-56); Albumin, Serum 3.7 g/dL (3.2-5.0); Alkaline Phosphatase 60 U/L (45-117); Anion Gap 4 (5-15); BUN 9 mg/dL (7-18); BUN/Creat Ratio 10.8 RATIO (10-20); Calcium,Total 9.1 mg/dL (8.5-10.1); Chloride 108 mmol/L (98-107); Creatinine, Serum 0.83 mg/dL (0.55-1.02); EST Glomerular Filtration Rate 84 mL/min (>60); Est Glom Filt Rate - Afr Amer 102 mL/min (>60); Globulin 3.4 g/dL (2.2-4.2); Glucose 93 mg/dL (74-106); Potassium 4.1 mmol/L (3.5-5.1); Protein, Total 7.1 g/dL (6.4-8.2); Sodium Level 140 mmol/L (136-145); Thyroid Stim Hormone (TSH) 0.92 uIU/mL (0.358-3.74)
--- NOTE | 2023-06-28 07:30 | HYST_PTH ---
PATIENT: YUMIKO PEÑA LOC: [facility] [place] U#:[id number] AGE/SX: 33/F ROOM: RE06/29/[address]: Dr. Rosenda Seaman MD : 1990 BED: DIS: 06/29/2023 SPEC #: [id number] RECD: 06/29/23 10:26 STATUS: SHAJI CHECOSepideh #: [id number] KIMMY: 06/28/23 07:[address]: Rosenda Seaman DEPT: SURGICAL PATHOLOGY RECD BY: Nakia Osorio ENTERED: 06/29/23 10:54 SP TYPE: HYSTERECT OTHR DR: No Primary Care Phys Tissues: Uterus, NOS Procedures: Surgery Specimen Level V HEADER OPERATION: ERAS, vaginal hysterectomy, bilateral salpingectomy, IUD removal PRE-OP DIAGNOSIS: Abnormal uterine bleeding due to adenomyosis TISSUE SUBMITTED: Uterus, cervix, bilateral fallopian tubes MICROSCOPIC DIAGNOSIS Uterus, cervix, bilateral fallopian tubes, hysterectomy and bilateral salpingectomy: Cervix - chronic inflammation. Endometrium - proliferative endometrium with focal area of exogenous hormone effects. Myometrium - focal superficial adenomyosis. Bilateral fallopian tube - no pathologic diagnosis. Two paratubal cysts. SJ:martín 06/30/2023 MICROSCOPIC DESCRIPTION Slides are reviewed. GROSS DESCRIPTION Received in fixative is one container labeled with the patient's name and designated uterus, cervix, bilateral fallopian tubes. The specimen consists of a hysterectomy specimen consisting of uterus with cervix and detached bilateral fallopian tubes. The uterus with cervix weighs 126 gm and measures 11.0 x 6.0 x 5.0 cm. The serosal surface is spence, glistening. The ectocervical mucosa is unremarkable. The external os is oval and patulous in contour. The endocervical canal measures 3.5 cm in length and the endocervical mucosa is spence, glistening and unremarkable. The triangular endometrial cavity measures 5.0 cm in length and up to 2.0 cm in width. The endometrium is spence, glistening without any mass lesion and measures 0.1 cm in thickness. Sections of the uterine wall do not reveal any mass lesion and it measures up to 3.0 cm in thickness. The fallopian tubes are not identified as right or left. Fallopian tube measures 4.5 cm in length and 0.5 cm in diameter and 5.0 cm in length and 0.6 cm in diameter. Fimbrial ends are identified. Sections reveal unremarkable cut surfaces. Two paratubal cysts are noted adjacent to one fallopian tube each measuring 1.0 cm in greatest dimension and filled with clear fluid. Toll Booth Operator sections are submitted in eight cassettes as follows: 1 - anterior cervix, 2 - posterior cervix, 3 & 4 - anterior uterine wall, 5 & 6 - posterior uterine wall, 7 - one fallopian tube, 8 - second fallopian tube and paratubal cysts. / SJ:rg 06/29/2023 TC:5 CPT: 85435
[2023-06-29] VITALS (9 sets, daily range): BP systolic 116–136; BP diastolic 59–91; PULSE 57–88; RESP 15–19; TEMP 36.1–36.6; O2SAT 97–100; BMI 23.2
[2023-06-29 06:02] LABS: Internal QC Validated? YES +Cl - CLEAR BKGD; Pregnancy, Urine Negative Negative
[2023-06-29] MEDS: Enoxaparin 40 MG/0.4 ML Syringe SC (06:07)
[2023-06-29] MEDS: Acetaminophen 500 MG Tablet 1000 MG PO (06:07)
[2023-06-29] MEDS: Celecoxib 200 MG Capsule 400 MG PO (06:07)
[2023-06-29] MEDS: Gabapentin 600 MG Tablet PO (06:07)
[2023-06-29] MEDS: dexAMETHasone 4 MG/ML Vial 8 MG IV (06:08)
[2023-06-29] MEDS: Lactated Ringers 1,000 ML 40 ML IV (06:08)
[2023-06-29] MEDS: Magnesium 1 GM over 15 mins IV (06:08)
[2023-06-29] MEDS: Insulin Lispro 100 UNIT/ML INSULN.PEN SC (06:22)
--- NOTE | 2023-06-29 07:29 | HP.PCM_ITS ---
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 Is patient in pain?: No Allergies latex Allergy (Verified 06/08/23 10:04) Itching Medications levonorgestrel 21 mcg/24 hours (8 yrs) 52 mg intrauterine device (Mirena) 1 device intrauterine ONCE 11/24/21 [History Confirmed 06/08/23] Post menopausal: No Patient : No : [facility] Hepatitis History of gestational diabetes Vaginal delivery Surgical History History of appendectomy Family History Grandfather Heart disease Social History Smoking Status: Former smoker alcohol intake: never what type of physical activity do you participate in: none seatbelt use: always do you feel safe at home: Yes additional social history: Tavo Cole [facility] TVHBS Details: YUMIKO PEÑA is a 33 year old who presents for preop visit planning [facility] bs for AUB and adenomyosis, failed iud. Female Reproductive History Menopausal Symptoms: No night sweats History 4 Elective abortions Hx Para 2 Spontaneous abortions 1 Hx # Term Pregnancies Ectopic pregnancies Hx # Pregnancies Multiple births # of living children 3 Past Pregnancies Del. Date Name GA/Weeks Outcome Route Bth Weight Infant Gen Labor Lgth Anesthesia Del Locatn Provider FOB Unknown 2008 Paramjit 38 live - full term 7lbs 1oz Male epidural Lonnie Unknown 2013 SAB Unknown 2015 Mehrdad 36 live - 5lbs 11oz M cade none [facility] SM 10/14/21 Errol 39 live - full term NS VD Male [facility] Jurgen Delivery Date: Last Updated by: Janice Louie induction Delivery Date: Last Updated by: Janice Louie induction pre e Delivery Date: 10/14/21 Last Updated by: Bonita Moura IOL 39 wk GDMA2 02/04 BPP hep c ROS Const Constitutional: Denies fatigue, night sweats, weight gain or weight loss ENT ENT: Reports system reviewed and no additional complaints, except as documented Cardio Card: Denies chest pain Resp Resp: Denies cough or dyspnea GI GI: Reports as per HPI; Denies abdominal pain, constipation, nausea or vomiting : Denies nipple discharge, urinary frequency, urinary incontinence, urinary hesitancy, urinary urgency, vaginal discharge, vaginal dryness, vaginal odor or vaginal pruritus Musc Musc: Denies arthralgias, back pain or muscle weakness Skin Skin/Breast: Denies alopecia, change in hair, dry skin, breast mass, breast p ain, breast skin changes or nipple discharge Neuro Neuro: Reports system reviewed and no additional complaints, except as documented Psych Psych: Reports system reviewed and no additional complaints, except as documented Endo Endo: Denies cold intolerance, excessive sweating, heat intolerance or polydipsia Marty/Lymph Hematologic/Lymphatic: Denies easy bleeding, Denies easy bruising and Denies lymphadenopathy Exam Const General: cooperative, healthy appearing, comfortable and no acute distress Orientation: alert [facility] Head: normal to inspection and normocephalic Ears: hearing grossly normal bilaterally and external ears normal Nose: external nose normal and nares normal Face and sinus: normal facial exam Neck Neck: normal visual inspection and no lymphadenopathy Thyroid: thyroid normal Chest Chest palpation & inspection: normal inspection of the chest Resp Effort & Inspection: normal respiratory effort Auscultation: clear to auscultation bilaterally Cardio Rate: regular rate Rhythm: regular rhythm Heart Sounds: S1 normal and S2 normal GI Inspection: normal to inspection and non-distended Palpation: soft and no hepatosplenomegaly Musc Other: gross motor intact no deficits, full bilateral strength Skin General: no rashes or lesions noted Neuro General: patient alert, patient awake, moves all extremities and no focal motor deficits Motor: muscle tone normal throughout Extrem General: normal to inspection and no pedal edema Psych Appearance: grossly normal Mental Status: mental status grossly normal Affect: normal affect Speech and Movement: speech and movement normal Coding Level of Care Code No Charge Diagnoses Abnormal uterine bleeding due to adenomyosis N93.9; N80.03 Assessment and Plan Assessment and Plan (1) Abnormal uterine bleeding due to adenomyosis: Status: Acute Comment: failed IUD, discussed options plan TVHBS, has MAGEN plan queenie consult for possible combo case Plan After discussing the patient's diagnosis and treatment plan options, patient wishes to proceed with surgical management. I have discussed with the patient the risks, benefits, and alternatives of the procedure which include but are not limited to risks of anesthesia, bleeding, infection, possible damage to bowel, bladder, or surrounding vasculature which could lead to additional surgery to evaluate any complications. Patient agrees to procedure and wishes to proceed. ACOG/uptodate references given for additional information regarding procedure. UPDATE- I have seen the patient and performed any clinically relevant updates to the history and physical exam. Rosenda Seaman MD
[2023-06-29] MEDS: Cefazolin 2 GM in 0.9% Normal Saline (100mL Bag) 100 ML IV (07:43)
[2023-06-29] MEDS: Vasopressin 20 UNITS/ML Vial (07:57)
[2023-06-29 08:18] LABS: Bedside Glucose 215 mg/dL (74-106)
[2023-06-29 08:32] LABS: Bedside Glucose 117 mg/dL (74-106)
--- NOTE | 2023-06-29 09:16 | PCM.OPRPT ---
Problems Associated Problem List Diagnoses (1) Abnormal uterine bleeding due to adenomyosis: (2) History of total vaginal hysterectomy (TVH): Report of Operation Date of Procedure: 06/29/23 Pre-Operative Diagnosis: see A/P Post-Operative Diagnosis: same Surgery/Procedure Performed:: TVH BS Description of Surgical Findings:: pelvic congestion 10 cm uterus Surgeon: Rosenda Seaman Type of Anesthesia: General Specimen's removed: uterus, tubes Drains: burns Fluids Replaced: crystalloid Description of Procedure: Patient was taken to the operating room and was placed under general anesthesia was prepped and draped in normal sterile fashion in the dorsal lithotomy position. Preoperative antibiotics and SCDs and Burns catheter was placed inside the bladder. Weighted speculum was placed in the vagina and the anterior and posterior lip of the cervix was grasped with 2 Otoniel clamps and circumferentially injected with dilute vasopressin. A circumferential incision was made with a scalpel and the posterior cul-de-sac was entered into sharply and a longneck speculum was placed. The anterior cul-de-sac was also dissected down and entered into sharply and the uterosacral ligaments were clamped cut and suture ligated bilaterally followed by the cardinal ligaments which were Clamped cut and suture ligated bilaterally with 0 Monocryl. The uterus serially descended and progressive bites were taken bilaterally up to the level of the utero-ovarian ligament bilaterally which was clamped transected and double ligated with 0 Monocryl suture and 0 Vicryl free tie. Bilateral fallopian tubes and ovaries were well visualized and noted be within normal limits and the bilateral fallopian tubes were transected across the base with a Genoveva clamp and removed and sutured with 0 Vicryl suture. Excellent hemostasis was noted. The vagina was closed with [id number] 0 Vicryl pop offs including the posterior and anterior peritoneum in the reapproximation. Excellent hemostasis was noted. All instruments removed from the vagina clear urine was noted at the end of the procedure and patient was awoken and taken recovery in stable condition. Grafts/Implants Used: none Complications none Admit VTE Documentation VTE Present on Admission: No VTE Mechan Device Prophylaxis: SCD's VTE Pharm Prophylaxis ordered?: Yes Multi Select Codes Urinary/Genital Urinary/Genital CPT Codes: 87332 TVH+BS/O <250gr uterus
--- NOTE | 2023-06-29 09:18 | DCINST_ITS ---
Discharge Instructions Diet Discharge Diet: No restrictions Activity Discharge Activity: Return to Normal Activity, May Not Drive (while taking narcotic pain medications.) and May Shower May resume sexual activity in: 6-8 weeks Dressing / Incision Call your doctor if your incision/area has: Continuous Slow Oozing, Sudden Increased Bleeding, Increased Pain/ Swelling, Increased Redness and Foul Smelling Discharge Call your doctor if you observe: Fever of 101 or Higher, Inability to urinate, Inability to have a bowel movement and Using more than 1 pad per hour Follow Up Care Please Follow Up With: Rosenda Seaman MD Test Results: Test results from this visit will be discussed in further detail at your follow- up appointment, if applicable. Discharge Plan Admission Attending Provider: Rosenda Seaman Primary Care Provider: Care Physician,Akilah Primary Discharge Orders/Prescriptions Prescriptions: New oxycodone-acetaminophen [Percocet] 5-325 mg tablet 1 tab PO Q6H PRN (Reason: pain) 7 Days Qty: 10 0RF naproxen [naproxen] 500 mg tablet 500 mg PO BID PRN PRN (Reason: Pain) Qty: 30 1RF Continued Mirena 20 mcg/24 hours (7 yrs) 52 mg intrauterine device 1 device intrauterine ONCE Rx Instructions: as a single dose ibuprofen 800 mg tablet 800 mg PO Q8H PRN (Reason: pain) Other Ambulatory Orders: ,Urine (Routine) Timeframe: [id number] Facility: [facility] - Location: Laboratory Ordered By: Dr. Rosenda Seaman Referrals / Follow Up: Care Physician,Akilah Primary [Primary Care Provider] - Disposition Disposition (needs filled in before D/C Order can be placed): Home, Self Care
[2023-06-29 09:49] LABS: Bedside Glucose 156 mg/dL (74-106)
[2023-06-29] MEDS: Ketorolac 30 MG/ML Syringe IV (10:27)
[2023-06-29] MEDS: oxyCODONE 5 MG Tablet PO (11:06)
[2023-06-29 12:22] LABS: Hematocrit 41.7 % (37-47); Mean Corp Hgb Conc 33.6 g/dL (32-36); Mean Corpuscular Volume 92.3 fL (81-99); Mean Platelet Vol. 11.1 fl (6.2-12.0); Platelet Count 272 K/mm3 (150-450); RBC Distribution Width SD 41.1 fl (35.1-43.9); Red Blood Count 4.52 M/mm3 (4.2-5.4); White Blood Count 15.1 K/mm3 (4.4-11.0)
== END 2023-06-29 13:43 | disposition home or self-care (01) ==
LOC: SDC 05:27 → AC 05:27
PROVIDERS: Anesthesiology; Referring Provider Obstetrics & Gynecology; Visit Provider Obstetrics & Gynecology
PROC: (CPT 58260; principal; 2023-06-29 07:10)
DX: N80.03 Adenomyosis of the uterus (principal); Z87.891 Personal history of nicotine dependence; F12.90 Cannabis use, unspecified, uncomplicated; Z86.32 Personal history of gestational diabetes; N83.8 Other noninflammatory disorders of ovary, fallopian tube and broad ligament
CPT/HCPCS: 58262; 00944; 36415; 80053; 81025; 82962; 83735; 84443; 85027; 85610; 85730; 86850; 86900; 86901; 88307; J7120; J2405; J3475

== ENCOUNTER → 2024-02-04 | Outpatient (CLI) | payer MEDICAID, SELFPAY ==
[2024-02-04 13:09] LABS: Absolute Lymphocyte Count 1.39 X10^3/uL (0.83-4.51); Absolute Neutrophil Count 6.2 X10^3/uL (2.0-7.7); Basophil# 0.04 X10^3/uL; Basophil% 0.5 % (0-1); Eosinophil# 0.12 X10^3/uL; Eosinophils% 1.4 % (0-5); Hematocrit 44.2 % (37-47); Hemoglobin 14.5 g/dL (12.0-15.0); Lymphocyte # 1.39 X10^3/ul (0.83-4.51); Lymphocyte % 16.4 % (19-41); Mean Corp Hgb Conc 32.8 g/dL (32-36); Mean Corpuscular Hgb 30.1 pg (27.0-32.0); Mean Corpuscular Volume 91.7 fL (81-99); Mean Platelet Vol. 11.4 fl (6.2-12.0); Monocyte# 0.77 X10^3/uL; Monocyte% 9.1 % (0-10); NRBC Flagged by Analyzer 0 % (0-5); Neutrophil # 6.16 X10^3/uL (2.7-7.7); Neutrophil % 72.4 % (47-70); Platelet Count 250 K/mm3 (150-450); RBC Distribution Width SD 40.6 fl (35.1-43.9); Red Blood Count 4.82 M/mm3 (4.2-5.4); White Blood Count 8.5 K/mm3 (4.4-11.0)
[2024-02-04 13:30] LABS: International Normalized Ratio 0.9; Prothrombin Time (Protime)PT. 11.9 SECONDS (11.7-14.9)
[2024-02-04 13:46] LABS: Vitamin D,25 Hydroxy 25.2 ng/mL
[2024-02-04 13:49] LABS: AST(SGOT) 17 U/L (15-37); Alanine Aminotransfer ALT/SGPT 16 U/L (13-56); Albumin, Serum 3.6 g/dL (3.2-5.0); Alkaline Phosphatase 73 U/L (45-117); Anion Gap 6 (5-15); BUN 9 mg/dL (7-18); BUN/Creat Ratio 11.4 RATIO (10-20); CRP < 2.90 mg/L (0.0-3.0); Calcium,Total 8.7 mg/dL (8.5-10.1); Chloride 107 mmol/L (98-107); Cholesterol 224 mg/dL (200); Creatinine, Serum 0.79 mg/dL (0.55-1.02); EST Glomerular Filtration Rate 89 mL/min (>60); Est Glom Filt Rate - Afr Amer 107 mL/min (>60); Globulin 3.6 g/dL (2.2-4.2); Glucose 99 mg/dL (74-106); High Density Lipoprotein 54 mg/dL; Potassium 3.9 mmol/L (3.5-5.1); Protein, Total 7.2 g/dL (6.4-8.2); Sodium Level 137 mmol/L (136-145); Triglycerides 80 mg/dL; Very Low Density Lipoprotein 16 mg/dL (5-40)
[2024-02-07 15:07] LABS: AFP, Tumor Marker < 1.8 ng/mL (0.0-6.4); ANTINUCLEAR ANTIBODIES DIRECT Negative (Negative); Anti-Mitochondrial AB <20.0 Units (0.0-20.0); Anti-Smooth Muscle ABS 43 Units (0-19); HCV Quant. RNA PCR HCV Not Detected IU/mL (.)
== END | disposition home or self-care (01) ==
LOC: LAB 12:04
PROVIDERS: Referring Provider Internal Medicine; Visit Provider Internal Medicine
DX: B19.20 Unspecified viral hepatitis C without hepatic coma (principal)
CPT/HCPCS: 36415; 80053; 80061; 82105; 82306; 83516; 85025; 85610; 86038; 86140; 86225; 86235; 87522

== ENCOUNTER → 2024-02-10 | Outpatient (CLI) | payer MEDICAID, SELFPAY ==
--- NOTE | 2024-02-10 08:52 | US_ITS ---
STUDY: ABDOMINAL ULTRASOUND - RIGHT UPPER QUADRANT; ELASTOGRAPHY REASON FOR VISIT: Female, 33 years old. Chronic hepatitis C. TECHNIQUE: Ultrasound evaluation of the right upper quadrant was performed with real-time and static dixon-scale imaging. Point quantification shear wave elastography was performed (XPlace). TECHNICAL QUALITY: Limited. Examination limited by bowel gas. COMPARISON: Comparison is made with prior study dated March 13, 2022. FINDINGS: Liver: The liver measures 15.2 cm. There is normal echogenicity of the liver. The bile ducts are within normal limits. There is hepatic color flow. The direction of portal flow is hepatopetal. There is no demonstrated mass lesion. Median liver stiffness measured 7 kPa. Gallbladder: Normal distended gallbladder. The gallbladder wall measures 3.3 mm. There is a negative sonographic Velásquez''s sign. There is no pericholecystic fluid. There are no gallstones. Common Bile Duct (C.B.D.): The common bile duct measures 3.4 mm. Pancreas: There is normal echogenicity of the visualized pancreas. There is no demonstrated pancreatic mass or cyst. Right Kidney: Normal size of the right kidney. The right kidney measures 11.1 cm x 4.7 cm x 5.8 cm. Normal renal cortex. The right cortex measures 1.4 cm. There is no demonstrated renal mass or cyst. There is no right hydronephrosis. US/ABD Limited w/ Elastography IMPRESSION: 1. Liver stiffness measures 7 kPa compatible with F2-F3 (Mild to moderate liver fibrosis) Metavir score. Electronically Signed: Guero Vasquez MD at 9:07 EDT ,
== END | disposition home or self-care (01) ==
LOC: US 08:51
PROVIDERS: Referring Provider Internal Medicine; Visit Provider Internal Medicine
DX: B19.20 Unspecified viral hepatitis C without hepatic coma (principal)
CPT/HCPCS: 76705; 76981

== ENCOUNTER → 2024-05-18 | Outpatient (CLI) | payer MEDICAID, SELFPAY ==
[2024-05-18] VITALS (12 sets, daily range): BP systolic 100–126; BP diastolic 45–77; PULSE 55–74; RESP 13–22; TEMP 36.2; O2SAT 94–100; BMI 25.2
[2024-05-18 09:18] LABS: Absolute Lymphocyte Count 1.72 X10^3/uL (0.83-4.51); Absolute Neutrophil Count 3.1 X10^3/uL (2.0-7.7); Basophil# 0.04 X10^3/uL; Basophil% 0.7 % (0-1); Eosinophil# 0.19 X10^3/uL; Eosinophils% 3.4 % (0-5); Hematocrit 42.7 % (37-47); Hemoglobin 14.3 g/dL (12.0-15.0); Lymphocyte # 1.72 X10^3/ul (0.83-4.51); Lymphocyte % 30.8 % (19-41); Mean Corp Hgb Conc 33.5 g/dL (32-36); Mean Corpuscular Hgb 30.1 pg (27.0-32.0); Mean Corpuscular Volume 89.9 fL (81-99); Mean Platelet Vol. 10.4 fl (6.2-12.0); Monocyte# 0.55 X10^3/uL; Monocyte% 9.9 % (0-10); NRBC Flagged by Analyzer 0 % (0-5); Neutrophil # 3.07 X10^3/uL (2.7-7.7); Platelet Count 279 K/mm3 (150-450); RBC Distribution Width CV 11.7 % (11.6-14.6); RBC Distribution Width SD 38.5 fl (35.1-43.9); Red Blood Count 4.75 M/mm3 (4.2-5.4); White Blood Count 5.6 K/mm3 (4.4-11.0)
[2024-05-18 09:22] LABS: Prothrombin Time (Protime)PT. 12.7 SECONDS (11.7-14.9)
[2024-05-18] MEDS: 0.9% Normal Saline (250mL Bag) 250 ML 15 ML IV (09:43)
[2024-05-18] MEDS: 0.9% Saline Lock 10 ML Syringe IV (09:43)
[2024-05-18] MEDS: Midazolam 2 MG/2 ML Syringe IV (09:44)
[2024-05-18] MEDS: fentaNYL 100 MCG/2 ML Ampul IV (09:45)
[2024-05-18] MEDS: Lidocaine 2% (20 ml mdv) 20 ML Vial INFILT (09:56)
[2024-05-18 10:04] LABS: AST(SGOT) 18 U/L (15-37); Alanine Aminotransfer ALT/SGPT 15 U/L (13-56); Albumin, Serum 3.6 g/dL (3.2-5.0); Alkaline Phosphatase 64 U/L (45-117); Anion Gap 8 (5-15); BUN 9 mg/dL (7-18); BUN/Creat Ratio 10.6 RATIO (10-20); CRP < 2.90 mg/L (0.0-3.0); Calcium,Total 8.7 mg/dL (8.5-10.1); Chloride 110 mmol/L (98-107); Cholesterol 242 mg/dL (200); Creatinine, Serum 0.85 mg/dL (0.55-1.02); EST Glomerular Filtration Rate 81 mL/min (>60); Est Glom Filt Rate - Afr Amer 99 mL/min (>60); Globulin 3.7 g/dL (2.2-4.2); Glucose 103 mg/dL (74-106); High Density Lipoprotein 53 mg/dL; Potassium 3.8 mmol/L (3.5-5.1); Protein, Total 7.3 g/dL (6.4-8.2); Sodium Level 140 mmol/L (136-145); Triglycerides 75 mg/dL; Very Low Density Lipoprotein 15 mg/dL (5-40)
--- NOTE | 2024-05-18 10:15 | LIVB_PTH ---
PATIENT: YUMIKO PEÑA LOC: CT U#:[id number] AGE/SX: 34/F ROOM: RE05/18/[address]: Dr. Charles Rodriguez MD : 1990 BED: DIS: 05/18/2024 SPEC #: [id number] RECD: 05/18/24 11:03 STATUS: SHAJI RESepideh #: [id number] KIMMY: 05/18/24 10:[address]: Charles Rodriguez DEPT: SURGICAL PATHOLOGY RECD BY: Michael Greer ENTERED: 05/18/24 11:30 SP TYPE: LIVER BX OTHR DR: Akilah Primary Care Phys Tissues: Liver, NOS Procedures: PAS with Diastase (control) Trichrome (control) Special Stain Group I PAS Stain (control) Surgery Specimen Level V Retic (control) Iron Stain (control) HEADER OPERATION: CT guided liver biopsy PRE-OP DIAGNOSIS: Suspected autoimmune hepatitis TISSUE SUBMITTED: 18 gauge x 3 cores MICROSCOPIC DIAGNOSIS Liver, CT guided core biopsy: Chronic hepatitis, Grade 1, Stage 1. See microscopic description and comment. Jed 05/19/2024 COMMENT Correlation with clinical, laboratory findings and appropriate follow up are necessary. MICROSCOPIC DESCRIPTION Slides are reviewed. This specimen shows fragments of liver parenchymal tissue with preserved lobular architecture. Hepatocytes are unremarkable. Lobular inflammation is not seen. Portal area shows moderate chronic inflammation, predominantly consists of lymphocytes. Interface inflammation is not seen. Iron stain shows absent iron. Reticulin stain highlights normal lobular architecture. Trichrome stain shows mild portal fibrosis. Bridging fibrosis or cirrhosis is not seen. PAS stain with and without diastase do not show any abnormal accumulation of protein. All stains are performed with appropriate matched controls. GROSS DESCRIPTION Received is one container labeled with the patient's name and not further designated. The specimen consists of multiple elongated fragments of spence soft tissue that in aggregate measure 1.5 x 0.3 x 0.1 cm. The specimen is totally submitted in one cassette. 05/18/2024 TC:3 CPT:25544,85000u5
--- NOTE | 2024-05-18 10:19 | PCM.OP.PRO ---
Procedure Report Date of Procedure: 05/18/24 Assessment & Plan Assessment/Plan (1) Abnormal finding of blood chemistry: PLAN: PROCEDURE: CT DIRECTED CORE LIVER BIOPSY ORDERING PROVIDER: Dr. Rodriguez INDICATION: Female, 34 years old. Abnormal finding of blood chemistry, chronic viral hepatitis C. PROVIDER: LAUREN Hughes CONSENT: Written informed consent was obtained having explained the risks, benefits and alternatives in detail with the patient who accepted the risks and agreed to proceed. Laboratory review and clinical assessment was performed. PRE-PROCEDURE SEDATION ASSESSMENT: Current history and physical dictated by referring provider and reviewed. No clinical changes since date of exam. Patient has a Mallampati Score of Class 1 and ASA Class of 2. PROCEDURAL SEDATION PROTOCOL: The Drugs used were: 2 mg Versed, IV, and 50 mcg Fentanyl, IV. The sedation time was: 23 minutes, starting at 9:44 AM and terminated at 10:07 AM. The procedural sedation protocol was independently monitored by the department nurse. RADIATION DOSAGE (If Supplied By Facility): CTDIvol = 15.14 mGy, DLP = 271.18 mGycm Individualized dose optimization techniques were used for this CT. TECHNIQUE The patient was placed in a supine position. Using CT image guidance with image documentation, a suitable location in the right lobe of the liver was identified. The skin surface was prepped with chlorhexidine and draped in a sterile fashion. 2% lidocaine was used for local anesthesia. Using an anterior approach, puncture of the liver was uneventful with an 18-gauge core needle system. 3, 18-gauge core samples were obtained, and submitted in formalin to the pathologist for further assessment. The needle was removed. An occlusive sterile dressing was applied. Patient tolerated the procedure well, and returned to the holding bay for nursing monitoring. IMPRESSION: CT directed core needle biopsy of the liver, using CT image guidance with image documentation as described. Procedural Sedation protocol utilized with independent monitoring. Procedures Radiology Radiology US Procedures: 64547 Liver Biopsy Multi Select Codes Radiology Radiology CT Procedures: 83421-53 CT guidance parenchymal tissue
[2024-05-18 10:53] LABS: Hemoglobin A1c 5.1 % (3.8-5.6)
[2024-05-19 14:10] LABS: Anti-Centromere B Ab <0.2 AI (0.0-0.9); Anti-Chromatin <0.2 AI (0.0-0.9); Anti-Jo <0.2 AI (0.0-0.9); Anti-Mitochondrial AB <20.0 Units (0.0-20.0); Anti-Scleroderma-70 AB <0.2 AI (0.0-0.9); Anti-dsDNA Ab 1 IU/mL (0-9); RNP Ab 0.4 AI (0.0-0.9); SJOGREN'S Anti-SS-A test < 0.2 AI (0.0-0.9); SJOGREN'S Anti-SS-B test < 0.2 AI (0.0-0.9); Smith Ab <0.2 AI (0.0-0.9)
[2024-05-19 16:10] LABS: Anti-Smooth Muscle ABS 40 Units (0-19); Cytoplasmic Ab (C-ANCA) <1:20 titer (Neg:<1:20); Perinuclear Ab (P-ANCA) <1:20 titer (Neg:<1:20)
== END | disposition home or self-care (01) ==
PROVIDERS: Referring Provider Internal Medicine; Visit Provider Internal Medicine
DX: R79.9 Abnormal finding of blood chemistry, unspecified (principal); B18.2 Chronic viral hepatitis C; E78.5 Hyperlipidemia, unspecified
CPT/HCPCS: 47000; 36415; 77012; 80053; 80061; 83036; 83516; 85025; 85610; 86140; 86225; 86235; 86256; 88307; 88312; 99156; J7050; A4216